=== PATIENT | male | born 1945 | race Caucasian/White ===

== ENCOUNTER 2017-05-25 15:31 | Emergency (ER) | payer OTHER ==
[2017-05-25 15:42] VITALS: BP 188/91; PULSE 84; TEMP 97.6; BMI 28.1
[2017-05-25] MEDS ORDERED: KETOROLAC TROMETHAMINE 60 MG/2 ML VIAL IM ONE (17:38)
[2017-05-25] MEDS ORDERED: KETOROLAC TROMETHAMINE 60 MG/2 ML VIAL ONE (17:40)
--- NOTE | 2017-05-25 17:55 | PDOC ---
History of Present Illness - General Chief Complaint: Back Pain Stated Complaint: BACK PAIN Time Seen by Provider: 05/25/17 17:21 - History of Present Illness Initial Comments: 05/25/17 17:55 CHIEF COMPLAINT: HISTORY OF PRESENT ILLNESS: 72 yo M with hx of hypertension presents to ED with back pain s/p playing tennis yesterday. Patient states he was seen by his PMD for chronic back pain last week and was offered muscle relaxants "but I told him I thought I could do without them." Patient now states he feels like muscle relaxants would help him as he believes his back was aggravated by playing tennis yesterday. He reports the pain is worse with movement and that "I feel like I pulled something in my upper back." No recent travel or sick contacts. PAST MEDICAL HISTORY: Denies past medical history FAMILY HISTORY: Denies SOCIAL HISTORY: Lives at home with ____. Occupation: . Denies tobacco, alcohol, illicit drug use. SURGICAL HISTORY: Denies ALLERGIES: No known drug allergies REVIEW OF SYSTEMS General/Constitutional: Denies fever or chills. Denies weakness, weight change. HEENT: Denies change in vision. Denies ear pain or discharge. Denies sore throat. Cardiovascular: Denies chest pain or shortness of breath. Respiratory: Denies cough, wheezing, or hemoptysis. Gastrointestinal: Denies nausea, vomiting, diarrhea or constipation. Denies rectal bleeding. Genitourinary: Denies dysuria, frequency, or change in urination. Musculoskeletal: Denies joint or muscle swelling or pain. Denies neck or back pain. Skin and breasts: Denies rash or easy bruising. Neurologic: Denies headache, vertigo, loss of consciousness, or loss of sensation. Psychiatric: Denies depression or anxiety. Endocrine: Denies increased thirst. Denies abnormal weight change. Hematologic/Lymphatic: Denies anemia, easy bleeding, or history of blood clots. Allergic/Immunologic: Denies hives or skin allergy. Denies latex allergy. PHYSICAL EXAM General Appearance: Well-appearing, appropriately dressed. No apparent distress , no intoxication. HEENT: EOMI, PERRLA, normal ENT inspection, normal voice, TMs normal, pharynx normal. No conjunctival pallor. No photophobia, scleral icterus. Neck: Supple. Trachea midline. No tenderness, rigidity, carotid bruit, stridor , lymphadenopathy, or thyromegaly. Respiratory/Chest: Lungs CTAB. No shortness of breath, chest tenderness, respiratory distress, accessory muscle use. No crackles, rales, rhonchi, stridor , wheezing, dullness Cardiovascular: RRR. S1, S2. No JVD, murmur, bradycardia, tachycardia. Vascular Pulses: Dorsalis-Pedis (R): 2+, Dorsalis-Pedis (L): 2+ Gastrointestinal/Abdominal: Normal bowel sounds. Abdomen soft, non-distended. No tenderness or rebound tenderness. No organomegaly, pulsatile mass, guarding , hernia, hepatomegaly, splenomegaly. Lymphatic: No adenopathy, tenderness. Musculoskeletal/Extremities: Normal inspection. FROM of all extremities, normal capillary refill. Pelvis Stable. No CVA tenderness. No tenderness to extremities, pedal edema, swelling, erythema or deformity. Integumentary: Appropriate color, dry, warm. No cyanosis, erythema, jaundice or rash Neurologic: workday consultant II-XII intact. Fully oriented, alert. Appropriate mood/affect. Motor strength 5/5. No appreciable EOM palsy, facial droop or sensory deficit. 05/25/17 18:11 05/25/17 18:12 Past History - Past Medical History Allergies/Adverse Reactions: Allergies Allergy/AdvReac Type Severity Reaction Status Date / Time Penicillins Allergy Intermediate Rash Verified 05/25/17 15:37 Home Medications: Ambulatory Orders Aspirin 81 mg PO DAILY 12/08/12 Glucosamine Sulfate Dipot Chlr [Glucosamine] 1,000 mg PO DAILY 12/08/12 Losartan Potassium 50 mg PO HS 12/08/12 Multivitamin [Multivitamins] 1 each PO DAILY 12/08/12 Ranitidine [Zantac -] 150 mg PO BID 12/08/12 Tamsulosin HCl 0.4 mg PO HS 12/08/12 Cyclobenzaprine HCl 7.5 mg PO HS PRN #7 tablet 05/25/17 Famotidine [Pepcid] 20 mg PO BID #14 tablet 05/25/17 Naproxen 375 mg PO BID #14 tablet 05/25/17 Anemia: No Asthma: No Cancer: No Cardiac Disorders: No CVA: No COPD: No CHF: No Dementia: No Diabetes: No GI Disorders: Yes (GERD) Disorders: Yes (BPH) HTN: Yes Hypercholesterolemia: Yes Liver Disease: No Seizures: No Thyroid Disease: No - Surgical History Abdominal Surgery: Yes Appendectomy: Yes ("RUPTURED") Cardiac Surgery: No Cholecystectomy: Yes Lung Surgery: No Neurologic Surgery: No Orthopedic Surgery: Yes (KNEE ARTHROSCOPY, LEFT) - Suicide/Smoking/Psychosocial Hx Smoking Status: Yes Smoking History: Never smoked Have you smoked in the past 12 months: No Number of Cigarettes Smoked Daily: 0 If you are a former smoker, when did you quit?: 1971 Information on smoking cessation initiated: No Hx Alcohol Use: No Drug/Substance Use Hx: No Substance Use Type: None Hx Substance Use Treatment: No *Physical Exam - Vital Signs Last Vital Signs Temp Pulse Resp BP Pulse Ox 97.6 F 84 18 188/91 96 05/25/17 15:39 05/25/17 15:39 05/25/17 15:39 05/25/17 15:39 05/25/17 15:39 ED Treatment Course - Medications Given in the ED: ED Medications Discontinued Medications Generic Name Dose Route Start Last Admin Trade Name Ashkan PRN Reason Stop Dose Admin Ketorolac Tromethamine 60 mg 05/25/17 17:38 05/25/17 17:45 Toradol Injection - IM 05/25/17 17:39 60 mg ONCE ONE Administration *DC/Admit/Observation/Transfer Diagnosis at time of Disposition: Muscle spasm - Discharge Dispostion Disposition: HOME Condition at time of disposition: Stable Admit: No - Prescriptions Prescriptions: Cyclobenzaprine HCl 7.5 mg PO HS PRN #7 tablet PRN Reason: Muscle Spasms Famotidine [Pepcid] 20 mg PO BID #14 tablet Naproxen 375 mg PO BID #14 tablet - Referrals Referrals: Stewart Tong MD [Primary Care Provider] - - Patient Instructions Printed Discharge Instructions: DI for Muscle Strain Additional Instructions: Please take medications as prescribed. Follow up with orthopedics if symptoms persist past 7 days. If you develop ANY loss of bowel or bladder function, loss of sensation to your extremities, or any new or worsening symptoms, please return to the ER immediately. - Post Discharge Activity
== END 2017-05-25 18:10 | disposition home or self-care (01) ==
LOC: JERFT 15:31
PROC: 3E0233Z Introduction of Anti-inflammatory into Muscle, Percutaneous Approach (ICD-10-PCS; principal; 2017-05-25)
DX: M62.830 Muscle spasm of back (principal); K21.9 Gastro-esophageal reflux disease without esophagitis; N40.0 Benign prostatic hyperplasia without lower urinary tract symptoms; E78.00 Pure hypercholesterolemia, unspecified; I10 Essential (primary) hypertension; Z87.891 Personal history of nicotine dependence
CPT/HCPCS: 99281-25

== ENCOUNTER 2018-01-22 06:15 | Day surgery (SDC) | payer OTHER ==
[2018-01-21 10:55] VITALS: BMI 28.8
[~2018-01-22 06:15] MED LIST: BUPIVACAINE HCL/PF 0.25% (2.5MG/ML) 10 ML VIAL IJ ONE
[2018-01-22] MEDS ORDERED: MIDAZOLAM HCL 2 MG/2 ML SINGLE DOSE VIAL ONE (07:31)
[2018-01-22] MEDS ORDERED: SUCCINYLCHOLINE CHLORIDE 200 MG/10 ML VIAL ONE (07:31)
[2018-01-22] MEDS ORDERED: PROPOFOL 20 ML ONE (07:31)
[2018-01-22] MEDS ORDERED: BUPIVACAINE HCL/PF 0.25% (2.5MG/ML) 10 ML VIAL ONE ×2 (07:35→08:25)
[2018-01-22] MEDS ORDERED: CLINDAMYCIN 600 MG PREMIX BAG IVPB ONE (08:07)
[2018-01-22] MEDS ORDERED: GLYCOPYRROLATE 0.2 MG/1 ML VIAL ONE (08:19)
[2018-01-22] MEDS ORDERED: BUPIVACAINE HCL/PF 0.25% (2.5MG/ML) 10 ML VIAL IJ ONE (08:27)
[2018-01-22] MEDS ORDERED: BACITRACIN 15 GM TUBE TOPICAL OINTMENT ONE (08:32)
[2018-01-22] MEDS ORDERED: oxyCODONE HCL 5 MG TABLET PO PRN (08:41)
--- NOTE | 2018-01-22 08:41 | OP ---
Operative Note - Note: Operative Date: 01/22/18 Pre-Operative Diagnosis: right hydrocele Operation: rt hydrocelectomy Post-Operative Diagnosis: Same as Pre-op Surgeon: Lennox Vazquez Anesthesia: General Estimated Blood Loss (mls): 1 Drains & Tubes with Location: [facility] Operative Report Dictated: Yes
[2018-01-22] MEDS ORDERED: DEXTROSE 5%-0.45% SALINE 1,000 ML IV SCH (08:45)
[2018-01-22] MEDS ORDERED: ONDANSETRON 4 MG/2 ML VIAL IVPUSH PRN (08:46)
[2018-01-22] MEDS ORDERED: LACTATED RINGERS SOLUTION 1,000 ML IV SCH (09:00)
--- NOTE | 2018-01-22 10:07 | OP ---
DATE OF OPERATION: 01/22/2018 PREOPERATIVE DIAGNOSIS: Right hydrocele. POSTOPERATIVE DIAGNOSIS: Right hydrocele. PROCEDURE: Right hydrocelectomy. SURGEON: Lennox Fagan MD INDICATIONS: Patient is a 72-year-old male with symptomatic right hydrocele who has had multiple drainage procedures in the past, now elected to undergo definitive hydrocelectomy. He understood the risks of bleeding, infection, recurrence of hydrocele, and potential need for additional procedures. DESCRIPTION OF PROCEDURE: After informed consent was obtained, the patient was taken to the OR, placed supine on the operating table. After cardiac monitoring administered and general anesthesia established, the scrotum was prepped and draped in standard surgical fashion. An approximately 3-cm right heather-scrotal incision was created through the skin and the dartos muscle. All bleeding sites were cauterized until the tunica vaginalis was identified. Then, the testicle with hydrocele was delivered out of the sac. Tunica vaginalis was excised, and the hydrocele fluid drained. It was cloudy and whitish. It was sent for culture and cytology. The hydrocele sac was then excised with cautery and sent to Pathology for analysis. The sac was then everted, and the testicle was placed back in its normal anatomic position. Attention was turned to wound closure. A Henning was placed in the corner of the wound, and the dartos layer was closed with interrupted 3-0 chromic suture leaving a small space for the Henning, and then, the skin was closed with interrupted mattress 3-0 chromic sutures again leaving the space for the Joe. Fluffs in the scrotal dressing with scrotal support were then placed. Patient was awoken from anesthesia and transferred to the recovery room in stable condition. There were no complications. Estimated blood loss was minimal. LENNOX FAGAN M.D. [id number]
[2018-01-22 16:05] VITALS: BP 134/78; PULSE 60; TEMP 98.2
--- NOTE | 2018-01-25 18:50 | PATH ---
Surgical Pathology Report Patient Name: ED EDMONDSON [facility]. Rec. #: [id number] /Age/Gender: 1945 (Age: 72) / M Account: [id number] Location: [facility] Taken: 01/22/2018 Received: 01/22/2018 Reported: 01/25/2018 Physicians: Lennox Vazquez M.D. Specimen(s) Received HYDROCELE SAC RIGHT Clinical History Right hydrocele Final Diagnosis HYDROCELE SAC, RIGHT, EXCISION: CONSISTENT WITH HYDROCELE. Electronically Signed Paula Fonseca M.D. Addendum Reported: 01/26/2018 Addendum Diagnosis In light of additional separate cytology fluid specimen showing numerous spermatozoa in the contents (see cytology report [id number]). This may represent a spermatocele. This case was discussed with Dr. Vazquez on 01/26/18. Paula Fonseca M.D. Gross Description Received in formalin labeled "hydrocele sac right," is a 2.8 x 2.2 x 0.3 cm aggregate of two pink-collins portions of fibromembranous tissue, consistent with a hydrocele. Parts Remover sections are submitted in one cassette. /01/22/2018 saudi01/22/2018
--- NOTE | 2018-01-26 10:39 | PATH ---
Cytology Non-Gynecological Report Patient Name: ED EDMONDSON [facility]. Rec. #: [id number] /Age/Gender: 1945 (Age: 72) / M Account: [id number] Location: [facility] Taken: 01/22/2018 Received: 01/22/2018 Reported: 01/26/2018 Physicians: Lennox Vazquez M.D. Specimen(s) Received RIGHT HYDROCELE FLUID Clinical History Right hydrocele Final Diagnosis RIGHT HYDROCELE FLUID: SATISFACTORY FOR EVALUATION. NEGATVIE FOR MALIGNANCY. NUMEROUS OF SPERMATOZOA AND SOME HISTIOCYTES PRESENT. THIS MAY REPRESENT CONTENTS OF A SPERMATOCELE. CLINICAL CORRELATION IS RECOMMENDED. ALSO SEE CONCURRENT PATHOLOGY REPORT [id number]. This case was discussed with Dr. Vazquez on 01/26/18. Electronically Signed Paula Fonseca M.D. Gross Description Approximately 40cc of whitish fluid received fresh. Two cytofunnels and one cellblock prepared.
== END 2018-01-22 13:00 | disposition home or self-care (01) ==
LOC: JASU-SURG 06:15
PROVIDERS: ATTEND Urology
PROC: 0VB60ZZ Excision of Right Tunica Vaginalis, Open Approach (ICD-10-PCS; principal; 2018-01-22 07:30)
DX: N43.2 Other hydrocele (principal)
CPT/HCPCS: 87070; 87075; 87205; 88108; 88304-TC; 94760

== ENCOUNTER 2018-02-22 08:18 | Emergency (ER) | payer OTHER ==
[2018-02-22 08:31] VITALS: BMI 28.8
--- NOTE | 2018-02-22 09:16 | PDOC ---
History of Present Illness - General Chief Complaint: Pain Stated Complaint: ABD PAIN Time Seen by Provider: 02/22/18 09:02 History Source: Patient Exam Limitations: No Limitations - History of Present Illness Travel History: No Initial Comments: 02/22/18 09:16 73y M hx of htn, gerd, bph presents with complaint of abdominal pain. Pt states he woke up this morning and has been having intermittent sharp pain in the lower abdomen. Notes the pain is worse this morning and now is just a mild discomfort. Pt endorses having a BM this morning that seemed to improve his pain. He denies any fever/chills, n/v, dysuria, hematuria, cp, sob, diaphoresis , diarrhea, bpr, melena, frequency, back pain.The pain is non radiating. Pt had a hydrocoele surgery 1 month ago, has max heeling well, denies any discomfort in his testicle, and notes no pain in his testicle Surgical hx: hydroceole surgery [address] pandey, hx of appendectomy /cholecystectomy in past PMD: Stewart magallanes Past History - Past Medical History Allergies/Adverse Reactions: Allergies Allergy/AdvReac Type Severity Reaction Status Date / Time Penicillins Allergy Intermediate Rash Verified 02/22/18 08:26 Home Medications: Ambulatory Orders Aspirin 81 mg PO DAILY 12/08/12 Glucosamine Sulfate Dipot Chlr [Glucosamine] 1,000 mg PO DAILY 12/08/12 Multivitamin [Multivitamins] 1 each PO DAILY 12/08/12 Ranitidine [Zantac -] 150 mg PO BID 12/08/12 Tamsulosin HCl 0.4 mg PO HS 12/08/12 Atorvastatin Ca [Lipitor] 10 mg PO HS 01/21/18 Cholecalciferol (Vitamin D3) [Vitamin D3] 1,000 unit PO DAILY 01/21/18 Cyanocobalamin [Vitamin B12 -] 1,000 mcg PO DAILY 01/21/18 Docusate Sodium [Colace] 100 mg PO HS 01/21/18 Levothyroxine [Synthroid -] 125 mcg PO DAILY 01/21/18 Losartan/Hydrochlorothiazide [Losartan-Hctz 50-12.5 mg Tab] 1 each PO HS [place]-3 Fatty Acids/Fish Oil [Fish Oil 1,000 mg Capsule] 1 each PO DAILY levoFLOXacin [Levaquin -] 500 mg PO DAILY #14 tablet 02/22/18 metroNIDAZOLE [Flagyl -] 500 mg PO DAILY #7 tablet 02/22/18 Anemia: No Asthma: No Cancer: No Cardiac Disorders: No CVA: No COPD: No CHF: No Dementia: No Diabetes: No GI Disorders: Yes (GERD) Disorders: Yes (BPH) HTN: Yes Hypercholesterolemia: Yes Liver Disease: No Seizures: No Thyroid Disease: No - Surgical History Abdominal Surgery: Yes Appendectomy: Yes ("RUPTURED") Cardiac Surgery: No Cholecystectomy: Yes Lung Surgery: No Neurologic Surgery: No Orthopedic Surgery: Yes (KNEE ARTHROSCOPY, LEFT) - Immunization History Immunization Up to Date: Yes - Suicide/Smoking/Psychosocial Hx Smoking Status: Yes Smoking History: Never smoked Have you smoked in the past 12 months: No Number of Cigarettes Smoked Daily: 0 If you are a former smoker, when did you quit?: 1972 Information on smoking cessation initiated: No Hx Alcohol Use: No Drug/Substance Use Hx: No Substance Use Type: None Hx Substance Use Treatment: No Review of Systems - Review of Systems Able to Perform ROS?: Yes Comments:: 02/22/18 09:20 Constitutional - no reported Fever, Chills, HEENT: no reported vision changes, sore throat Respiratory: no reported cough, sob, hemoptysis Cardiac: no reported chest pain, palpitations, light headedness, leg swelling Abd/GI: + abd pain, no reported nausea, vomiting, blood per rectum, melena, diarrhea : no reported dysuria, frequency, discharge Musculskelatal - no reported back pain, joint swelling skin - no reported bruising, erythema, rash neurological: no reported headache, numbness, focal weakness, tingling, ataxia, hematologic: no reported easy bruising, easy bleeding *Physical Exam - Vital Signs Last Vital Signs Temp Pulse Resp BP Pulse Ox 98.1 F 70 16 132/84 97 02/22/18 08:27 02/22/18 08:27 02/22/18 08:27 02/22/18 08:27 02/22/18 08:27 - Physical Exam Comments: 02/22/18 09:21 GENERAL: The patient is awake, alert, and fully oriented, Nontoxic - in no acute distress. HEAD: Normocephalic, atraumatic. EYES: extraocular movements intact, sclera anicteric, conjunctiva clear. ENT: Normal voice, Moist mucous membranes. NECK: Normal range of motion, supple LUNGS: Breath sounds equal, clear to auscultation bilaterally. No wheezes, no rhonchi, no rales. HEART: Regular rate and rhythm, normal S1 and S2 without murmur, rub or gallop. ABDOMEN: Soft, mild lower abdominal tenderness, hypoactive bowel sounds No guarding, no rebound. : R testicle slightly swollen, nontender, R testicle, incision c/d/i EXTREMITIES: Normal range of motion, no edema. No clubbing or cyanosis. No cords, erythema, or tenderness. NEUROLOGICAL: No facial assymetry, Normal speech, PSYCH: Normal mood, normal affect. SKIN: Warm, Dry, normal turgor, Heart Score/ECG Review - ECG Impressions Comment:: 02/22/18 09:45 Twelve-lead EKG was performed and reviewed by me. There is normal sinus rhythm with a normal rate. Rate of 66 The axis is normal. First degree AV block There is normal R wave progression ED Treatment Course - LABORATORY CBC & Chemistry Diagram: 02/22/18 10:00 02/22/18 10:00 Medical Decision Making - Medical Decision Making 02/22/18 09:23 73-year-old gentleman history of hypertension, hydrocephalus or approximately 1 month ago presenting with intermittent lower abdominal pain. On exam the patient is well-appearing, in no distress she does have hypoactive bowel sounds , minimal lower abdominal tenderness, mild right testicular swelling without any focal tenderness. Differential for the patient's symptoms includes possible obstruction, pancreatitis, UTI, complication from his hydrocele surgery (although there is no focal tenderness, and he notes the swelling has been since the surgery and has been improving gradually since the surgery) Will obtain basic blood work, UA, 02/22/18 12:28 labs reviewed no leukocytosis noted ua unremarkble pt still feeling mild pain with lower abd tenderness will obtain CT abd to r/o pathology 02/22/18 17:[address] noted for colitis abd soft nontender will give levauin/flagyl will dc with pmd fu return precautions were discussed I discussed the physical exam findings, ancillary test results and final diagnoses with the patient. I answered all of the patient's questions. The patient was satisfied with the care received and felt comfortable with the discharge plan and treatment plan. The patient will call their primary care physician within 24 hours to arrange follow-up and will return to the Emergency Department with any new, persistent or worsening symptoms. *DC/Admit/Observation/Transfer Diagnosis at time of Disposition: Colitis - Discharge Dispostion Disposition: HOME Condition at time of disposition: Improved Decision to Admit order: No - Prescriptions Prescriptions: levoFLOXacin [Levaquin -] 500 mg PO DAILY #14 tablet metroNIDAZOLE [Flagyl -] 500 mg PO DAILY #7 tablet - Referrals Referrals: Stewart Tong MD [Primary Care Provider] - - Patient Instructions Printed Discharge Instructions: DI for Colitis Additional Instructions: Return to the emergency department immediately with ANY new, persistent or worsening symptoms including worsening abdominal pain, inability to tolerate oral intake, fevers or any other concerns Thake the antibiotics as prescribed. You MUST call and follow up with your doctor in 2-3 days for further evaluation of your symptoms. Results were discussed with you. Please make sure your doctor reviews the results of your emergency evaluation. Print Language: FAROESE - Post Discharge Activity
[2018-02-22] MEDS ORDERED: morphine CARPU-JECT 2 MG/1 ML DISP.SYRIN IVPUSH ONE (09:18)
[2018-02-22] MEDS ORDERED: SODIUM CHLORIDE 500 ML IV STA (09:47)
[2018-02-22] MEDS ORDERED: MORPHINE SULFATE 2 MG/ML VIAL ONE (09:59)
[2018-02-22 10:15] LABS: BASO % 0.3 % (0-2.0); EOS % 0.1 % (0-4.5); HEMATOCRIT 41.4 % (35.4-49); HEMOGLOBIN 14.1 GM/dL (11.7-16.9); LYMPH % 6.3 % (8-40); MCH 28.6 pg (25.7-33.7); MCHC 34.1 g/dl (32.0-35.9); MEAN CELL VOLUME 83.8 fl (80-96); MEAN PLT VOLUME 8.5 fl (7.5-11.1); MONO % 4.4 % (3.8-10.2); NEUT % 88.9 % (42.8-82.8); PLATELET COUNT 186 K/MM3 (134-434); RBC 4.95 M/mm3 (4.00-5.60); RDW 13.2 % (11.9-15.9); WHITE BLOOD COUNT 9.3 K/mm3 (4.0-10.0)
[2018-02-22 10:18] LABS: URINE APPEARANCE CLEAR; URINE BILIRUBIN NEGATIVE (<2.0 mg/dL); URINE COLOR YELLOW; URINE GLUCOSE (UA) NEGATIVE (NEGATIVE); URINE KETONE NEGATIVE (NEGATIVE); URINE LEUK ESTERASE NEGATIVE (NEGATIVE); URINE NITRITE NEGATIVE (NEGATIVE); URINE PROTEIN NEGATIVE (NEGATIVE); URINE UROBILINOGEN NEGATIVE mg/dL (0.2-1.0)
[2018-02-22 10:39] LABS: ALBUMIN 3.8 g/dl (3.4-5.0); ALK PHOS 64 U/L (45-117); ANION GAP 8 MMOL/L (8-16); BLOOD UREA NITROGEN 20 mg/dL (7-18); CHLORIDE 105 mmol/L (98-107); CO2 25 mmol/L (21-32); GLUCOSE,RANDOM 131 mg/dL (74-106); LIPASE 101 U/L (73-393); POTASSIUM 3.7 mmol/L (3.5-5.1); SGOT/AST 30 U/L (15-37); SGPT/ALT 42 U/L (13-61); SODIUM 137 mmol/L (136-145); TOT PROT 7.2 g/dl (6.4-8.2)
[2018-02-22 17:48] VITALS: BP 144/74; PULSE 78; TEMP 98
--- NOTE | 2018-02-22 18:08 | EKG ---
Test Reason : Blood Pressure : / mmHG Vent. Rate : 066 BPM Atrial Rate : 066 BPM P-R Int : 212 ms QRS Dur : 090 ms QT Int : 404 ms P-R-T Axes : -08 026 -02 degrees QTc Int : 423 ms SINUS RHYTHM WITH 1ST DEGREE A-V BLOCK OTHERWISE NORMAL ECG WHEN COMPARED WITH ECG OF 19-NOV-2012 09:09, NO SIGNIFICANT CHANGE WAS FOUND Confirmed by AMBERLY PACE MD ([id number]) on 02/22/2018 6:08:18 PM Referred By: Confirmed By:AMBERLY PACE MD
== END 2018-02-22 17:48 | disposition home or self-care (01) ==
LOC: JER 08:18
PROC: 3E0337Z Introduction of Electrolytic and Water Balance Substance into Peripheral Vein, Percutaneous Approach (ICD-10-PCS; principal; 2018-02-22)
PROC: 3E03329 Introduction of Other Anti-infective into Peripheral Vein, Percutaneous Approach (ICD-10-PCS; 2018-02-22)
PROC: 3E033NZ Introduction of Analgesics, Hypnotics, Sedatives into Peripheral Vein, Percutaneous Approach (ICD-10-PCS; 2018-02-22)
PROC: 3E03329 Introduction of Other Anti-infective into Peripheral Vein, Percutaneous Approach (ICD-10-PCS; 2018-02-22)
DX: K52.9 Noninfective gastroenteritis and colitis, unspecified (principal); I10 Essential (primary) hypertension; K21.9 Gastro-esophageal reflux disease without esophagitis; E78.00 Pure hypercholesterolemia, unspecified; N40.0 Benign prostatic hyperplasia without lower urinary tract symptoms; Z98.890 Other specified postprocedural states; Z88.0 Allergy status to penicillin
CPT/HCPCS: 36415; 74177-TC; 80053; 81003; 83605; 83690; 85025; 93005; 93010; 99284-25

== ENCOUNTER 2018-05-14 11:21 | Emergency (ER) | payer OTHER ==
[2018-05-14 12:09] VITALS: TEMP 98.3; BMI 28.8
[2018-05-14] MEDS ORDERED: KETOROLAC TROMETHAMINE 30 MG/1 ML VIAL IVPUSH ONE (13:13)
[2018-05-14] MEDS ORDERED: SODIUM CHLORIDE 1,000 ML IV STA ×2 (13:13→17:26)
[2018-05-14] MEDS ORDERED: KETOROLAC TROMETHAMINE 30 MG/1 ML VIAL ONE ×2 (13:33→17:58)
[2018-05-14 13:55] LABS: BASO % 0.9 % (0-2.0); EOS % 0.6 % (0-4.5); HEMATOCRIT 38.8 % (35.4-49); HEMOGLOBIN 13.7 GM/dL (11.7-16.9); LYMPH % 15.3 % (8-40); MCH 29.7 pg (25.7-33.7); MCHC 35.2 g/dl (32.0-35.9); MEAN CELL VOLUME 84.4 fl (80-96); MEAN PLT VOLUME 8.3 fl (7.5-11.1); MONO % 12.8 % (3.8-10.2); NEUT % 70.4 % (42.8-82.8); PLATELET COUNT 215 K/MM3 (134-434); RDW 13.2 % (11.9-15.9); WHITE BLOOD COUNT 5.7 K/mm3 (4.0-10.0)
--- NOTE | 2018-05-14 13:58 | PDOC ---
History of Present Illness - General Chief Complaint: Diarrhea Stated Complaint: Diarrhea Time Seen by Provider: 05/14/18 12:13 History Source: Patient Exam Limitations: No Limitations - History of Present Illness Travel History: No Initial Comments: 05/14/18 14:42 73-year-old male with history of colitis and recent diagnosis of UTI presents he will continue a lower abdominal cramping frequent sensation to over his bowels and intermittent incontinence of urine. Patient denies fever but states had chills since Thursday and denies nausea, vomiting, hematuria or back pain. Patient does state decreased appetite and fluid intake secondary to fear of moving his bowels following by mouth intake as in earlier this week. Patient was seen by his PCP 2 days prior and was placed on Levaquin for UTI. Quality: reports: moderate, cramping Abdominal Pain Onset Location: reports: LLQ, suprapubic Pain Radiation: reports: no radiation Activities at Onset: reports: none Aggravating Factors: improves with: None Alleviating Factors: improves with: None Past History - Travel Traveled outside of the country in the last 30 days: No - Past Medical History Allergies/Adverse Reactions: Allergies Allergy/AdvReac Type Severity Reaction Status Date / Time Penicillins Allergy Intermediate Rash Verified 05/14/18 12:09 Home Medications: Ambulatory Orders Aspirin 81 mg PO DAILY 12/08/12 Glucosamine Sulfate Dipot Chlr [Glucosamine] 1,000 mg PO DAILY 12/08/12 Multivitamin [Multivitamins] 1 each PO DAILY 12/08/12 Ranitidine [Zantac -] 150 mg PO BID 12/08/12 Tamsulosin HCl 0.4 mg PO HS 12/08/12 Atorvastatin Ca [Lipitor] 10 mg PO HS 01/21/18 Cholecalciferol (Vitamin D3) [Vitamin D3] 1,000 unit PO DAILY 01/21/18 Cyanocobalamin [Vitamin B12 -] 1,000 mcg PO DAILY 01/21/18 Docusate Sodium [Colace] 100 mg PO HS 01/21/18 Levothyroxine [Synthroid -] 125 mcg PO DAILY 01/21/18 Losartan/Hydrochlorothiazide [Losartan-Hctz 50-12.5 mg Tab] 1 each PO HS [place]-3 Fatty Acids/Fish Oil [Fish Oil 1,000 mg Capsule] 1 each PO DAILY levoFLOXacin [Levaquin -] 500 mg PO DAILY #14 tablet 02/22/18 metroNIDAZOLE [Flagyl -] 500 mg PO DAILY #7 tablet 02/22/18 Anemia: No Asthma: No Cancer: No Cardiac Disorders: No CVA: No COPD: No CHF: No Dementia: No Diabetes: No GI Disorders: Yes (GERD) Disorders: Yes (BPH) HTN: Yes Hypercholesterolemia: Yes Liver Disease: No Seizures: No Thyroid Disease: No - Surgical History Abdominal Surgery: Yes Appendectomy: Yes ("RUPTURED") Cardiac Surgery: No Cholecystectomy: Yes Lung Surgery: No Neurologic Surgery: No Orthopedic Surgery: Yes (KNEE ARTHROSCOPY, LEFT) - Immunization History Immunization Up to Date: Yes - Suicide/Smoking/Psychosocial Hx Smoking Status: Yes Smoking History: Never smoked Have you smoked in the past 12 months: No Number of Cigarettes Smoked Daily: 0 If you are a former smoker, when did you quit?: 1972 Hx Alcohol Use: No Drug/Substance Use Hx: No Substance Use Type: None Hx Substance Use Treatment: No Patient Lives Alone: No Lives with/in: spouse/SO Abd/GI Specific PMHX - Complaint Specific PMHX Colitis: Yes Review of Systems - Review of Systems Able to Perform ROS?: Yes Constitutional: Yes: Chills, Weakness. No: Fever HEENTM: No: Symptoms Reported Respiratory: No: Symptoms reported Cardiac (ROS): No: Symptoms Reported ABD/GI: Yes: Diarrhea, Abdominal cramping : Yes: Frequency. No: Flank Pain Integumentary: No: Symptoms Reported Neurological: Yes: Weakness *Physical Exam - Vital Signs Last Vital Signs Temp Pulse Resp BP Pulse Ox 98.3 F 69 18 133/84 95 05/14/18 12:03 05/14/18 12:03 05/14/18 12:03 05/14/18 12:03 05/14/18 12:03 - Physical Exam General Appearance: Yes: Nourished, Appropriately Dressed. No: Apparent Distress HEENT: positive: EOMI, SEBASTIAN, TMs Normal, Pharynx Normal (dry) Neck: positive: Supple Respiratory/Chest: positive: Lungs Clear, Normal Breath Sounds. negative: Respiratory Distress, Accessory Muscle Use Cardiovascular: positive: Regular Rhythm, Regular Rate. negative: Murmur Gastrointestinal/Abdominal: positive: Soft, Tenderness (left lower quadrant/ left periumbilical) Musculoskeletal: negative: CVA Tenderness Extremity: negative: Pedal Edema Integumentary: positive: Normal Color, Warm, Moist Neurologic: positive: Motor Strength 5/5 Moderate Sedation - Procedure Monitoring Vital Signs: Procedure Monitoring Vital Signs Temperature 98.3 F 05/14/18 12:03 Pulse Rate 69 05/14/18 12:03 Respiratory Rate 18 05/14/18 12:03 Blood Pressure 133/84 05/14/18 12:03 O2 Sat by Pulse Oximetry (%) 95 05/14/18 12:03 ED Treatment Course - LABORATORY CBC & Chemistry Diagram: 05/14/18 13:30 05/14/18 13:30 - RADIOLOGY Radiology Studies Ordered: Category Date Time Status ABDOMEN & PELVIS CT WITH CONTR [CT] Stat CT Scan 05/14/18 13:13 Ordered Medical Decision Making - Medical Decision Making 05/14/18 15:15 Chief complaint: Lower abdominal cramping associated diarrhea and dysuria with frequency. Patient also with chills past 4 days. Patient currently Levaquin 500 daily placed by his PMD 2 days prior secondary to positive UA findings. Exam: Left lower quadrant left periumbilical tenderness. Patient appears dry on exam. Plan: Labs, urine, IV fluids, Toradol. Called and spoke to nurse at PMDs office stating urine culture shows Escherichia coli on preliminary report 05/14/18 17:36 Laboratory Tests 05/14/18 05/14/18 13:30 13:30 Sodium 135 L Potassium 3.3 L Chloride 98 Carbon Dioxide 27 Anion Gap 9 BUN 23 H Random Glucose 134 H Lactic Acid 1.0 Calcium 9.1 Magnesium 2.3 Total Bilirubin 0.6 AST 66 H ALT 69 H Alkaline Phosphatase 76 Total Protein 6.7 Lipase 131 05/14/18 17:36 Laboratory Tests 05/14/18 05/14/18 13:30 13:30 WBC 5.7 Hgb 13.7 Hct 38.8 Plt Count 215 Neutrophils % 70.4 D Monocytes % 12.8 H D Urine Ketones Negative Ur Leukocyte Esterase 1+ H Urine WBC (Auto) 31 Urine RBC (Auto) 1 As per nurse from patient's by care physician's office she states patient had a 66 white cells with 2+ leukocytes in his urine. Patient ordered for second liter of fluid along potassium 40 mEq by mouth patient states than better after receiving IV fluids and Toradol. 05/14/18 18:29 CT of the abdomen and pelvis shows mild increase posterior bibasally interstitial changes seen when compared to an abdominal CT study of January 2018 probably on the basis of mild atelectasis and less likely representing infiltrates. In comparison to prior CT there is resolution of colonic wall thickening and the remainder of the exam appears unremarkable. Patient will be given a prescription for Imodium and told to continue the Levaquin *DC/Admit/Observation/Transfer Diagnosis at time of Disposition: UTI (urinary tract infection), Diarrhea - Discharge Dispostion Disposition: HOME Condition at time of disposition: Improved - Referrals Referrals: Sharee Tong MD [Primary Care Provider] - - Patient Instructions Printed Discharge Instructions: DI for Urinary Tract Infection (UTI) Additional Instructions: Please take Imodium for cramping and diarrhea. Please continue with the Levaquin and follow up with your doctor next week. - Post Discharge Activity
[2018-05-14 14:14] LABS: URINE APPEARANCE CLEAR; URINE BILIRUBIN NEGATIVE (<2.0 mg/dL); URINE COLOR LTYELLOW; URINE GLUCOSE (UA) NEGATIVE (NEGATIVE); URINE KETONE NEGATIVE (NEGATIVE); URINE LEUK ESTERASE 1+ (NEGATIVE); URINE NITRITE NEGATIVE (NEGATIVE); URINE PROTEIN NEGATIVE (NEGATIVE); URINE UROBILINOGEN NEGATIVE mg/dL (0.2-1.0)
[2018-05-14 14:18] LABS: EPI CELLS RARE /HPF (FEW)
[2018-05-14 14:48] LABS: ALBUMIN 3.2 g/dl (3.4-5.0); ALK PHOS 76 U/L (45-117); ANION GAP 9 MMOL/L (8-16); BILIRUBIN,TOTAL 0.6 mg/dL (0.2-1); BLOOD UREA NITROGEN 23 mg/dL (7-18); CALCIUM 9.1 mg/dL (8.5-10.1); CHLORIDE 98 mmol/L (98-107); CO2 27 mmol/L (21-32); GLUCOSE,RANDOM 134 mg/dL (74-106); LIPASE 131 U/L (73-393); MAGNESIUM 2.3 mg/dL (1.8-2.4); POTASSIUM 3.3 mmol/L (3.5-5.1); SGOT/AST 66 U/L (15-37); SGPT/ALT 69 U/L (13-61); SODIUM 135 mmol/L (136-145); TOT PROT 6.7 g/dl (6.4-8.2)
[2018-05-14] MEDS ORDERED: POTASSIUM CHLORIDE TABS 20 MEQ TABLET.ER (FP) PO ONE ×2 (17:26→17:58)
[2018-05-14 19:26] VITALS: BP 128/74; PULSE 76
== END 2018-05-14 19:30 | disposition home or self-care (01) ==
LOC: JER 11:21
PROC: 3E0333Z Introduction of Anti-inflammatory into Peripheral Vein, Percutaneous Approach (ICD-10-PCS; principal; 2018-05-14)
PROC: 3E0337Z Introduction of Electrolytic and Water Balance Substance into Peripheral Vein, Percutaneous Approach (ICD-10-PCS; 2018-05-14)
DX: N39.0 Urinary tract infection, site not specified (principal); R19.7 Diarrhea, unspecified; Z87.891 Personal history of nicotine dependence
CPT/HCPCS: 36415; 74177-TC; 80053; 81003; 81015; 83605; 83690; 83735; 85025; 87086; 99282-25; J7030

== ENCOUNTER 2018-06-17 19:57 | Emergency (ER) | payer OTHER ==
[2018-06-17 20:06] VITALS: BP 181/85; PULSE 86; TEMP 97.6; BMI 28.8
--- NOTE | 2018-06-17 20:06 | PDOC ---
Rapid Medical Evaluation Chief Complaint: Pain Time Seen by Provider: 06/17/18 20:03 Medical Evaluation: Allergies Allergy/AdvReac Type Severity Reaction Status Date / Time Penicillins Allergy Intermediate Rash Verified 05/14/18 12:09 06/17/18 20:04 I have performed a brief in-person evaluation of this patient. The patient presents with a chief complaint of: Testicular pain and hematuria x 3 hrs Pertinent physical exam findings: No acute distress I have ordered the following: UA/culture, u/s scrotum The patient will proceed to the ED for further evaluation. Discharge Disposition - Diagnosis Testicular pain, left - Referrals - Patient Instructions - Post Discharge Activity
--- NOTE | 2018-06-17 20:29 | PDOC ---
History of Present Illness <Lula Cline - Last Filed: 06/18/18 00:15> - History of Present Illness Initial Comments: 06/17/18 20:25 73 yo M with h/o HTN, hypothyoridism, colitis, recurrent UTI who p/w hematuria, and left sided testicle pain. Patient reports acute onset of hematuria, dysuria , and dull, achy, now slightly improved, left sided testicular pain beginning at approximately 4:00 PM this evening at rest while, sitting at computer. Denies h/o similar presentation. No identifiable triggers or alleviators. Denies testicle trauma, flank pain. Patient denies MAURICIO, palpitations, leg pain/swelling, vision change, N/V, F,C, CP , SOB, urinary complaints, abdominal pain, diarrhea, constipation, BPR, lightheadedness, weakness, sensory changes. PMHx: as noted above. Denies h/o kidney stones ROS: as noted SHx: Distant tobacco use. Denies IVDA. Currently not sexually active. Allergies: NKDA <Tank Grant - Last Filed: 06/18/18 00:23> - General Chief Complaint: Pain Stated Complaint: TESTICLE PAIN/HEMATURIA Time Seen by Provider: 06/17/18 20:03 Past History <Lula Cline - Last Filed: 06/18/18 00:15> - Past Medical History Anemia: No Asthma: No Cancer: No Cardiac Disorders: No CVA: No COPD: No CHF: No Dementia: No Diabetes: No GI Disorders: Yes (GERD) Disorders: Yes (BPH) HTN: Yes Hypercholesterolemia: Yes Liver Disease: No Seizures: No Thyroid Disease: No - Surgical History Abdominal Surgery: Yes Appendectomy: Yes ("RUPTURED") Cardiac Surgery: No Cholecystectomy: Yes Lung Surgery: No Neurologic Surgery: No Orthopedic Surgery: Yes (KNEE ARTHROSCOPY, LEFT) - Immunization History Immunization Up to Date: Yes - Suicide/Smoking/Psychosocial Hx Smoking Status: Yes Smoking History: Former smoker Have you smoked in the past 12 months: No Number of Cigarettes Smoked Daily: 0 If you are a former smoker, when did you quit?: 1972 Information on smoking cessation initiated: No Hx Alcohol Use: No Drug/Substance Use Hx: No Substance Use Type: None Hx Substance Use Treatment: No <Tank Grant - Last Filed: 06/18/18 00:23> - Past Medical History Allergies/Adverse Reactions: Allergies Allergy/AdvReac Type Severity Reaction Status Date / Time Penicillins Allergy Intermediate Rash Verified 06/17/18 20:06 Home Medications: Ambulatory Orders Aspirin 81 mg PO DAILY 12/08/12 Glucosamine Sulfate Dipot Chlr [Glucosamine] 1,000 mg PO DAILY 12/08/12 Multivitamin [Multivitamins] 1 each PO DAILY 12/08/12 Ranitidine [Zantac -] 150 mg PO BID 12/08/12 Tamsulosin HCl 0.4 mg PO HS 12/08/12 Atorvastatin Ca [Lipitor] 10 mg PO HS 01/21/18 Cholecalciferol (Vitamin D3) [Vitamin D3] 1,000 unit PO DAILY 01/21/18 Cyanocobalamin [Vitamin B12 -] 1,000 mcg PO DAILY 01/21/18 Docusate Sodium [Colace] 100 mg PO HS 01/21/18 Levothyroxine [Synthroid -] 125 mcg PO DAILY 01/21/18 Losartan/Hydrochlorothiazide [Losartan-Hctz 50-12.5 mg Tab] 1 each PO HS [place]-3 Fatty Acids/Fish Oil [Fish Oil 1,000 mg Capsule] 1 each PO DAILY levoFLOXacin [Levaquin -] 500 mg PO DAILY #14 tablet 02/22/18 metroNIDAZOLE [Flagyl -] 500 mg PO DAILY #7 tablet 02/22/18 Loperamide HCl [Imodium -] 2 mg PO DAILY #7 capsule 05/14/18 levoFLOXacin [Levaquin -] 750 mg PO DAILY #9 tablet MDD 1 / tab 06/18/18 Review of Systems - Review of Systems Comments:: 06/17/18 20:28 GENERAL/CONSTITUTIONAL: No fever or chills. No weakness. HEAD, EYES, EARS, NOSE AND THROAT: No change in vision. No ear pain or discharge. No sore throat. CARDIOVASCULAR: No chest pain or shortness of breath RESPIRATORY: No cough, wheezing, or hemoptysis. GASTROINTESTINAL: No nausea, vomiting, diarrhea or constipation. GENITOURINARY: + hematuria, testicular pain. No dysuria, frequency, or change in urination. MUSCULOSKELETAL: No joint or muscle swelling or pain. No neck or back pain. SKIN: No rash NEUROLOGIC: No headache, vertigo, loss of consciousness, or change in strength/ sensation. ENDOCRINE: No increased thirst. No abnormal weight change HEMATOLOGIC/LYMPHATIC: No anemia, easy bleeding, or history of blood clots. ALLERGIC/IMMUNOLOGIC: No hives or skin allergy. <Tank Grant - Last Filed: 06/18/18 00:23> *Physical Exam - Vital Signs Last Vital Signs Temp Pulse Resp BP Pulse Ox 97.6 F 86 17 181/85 H 94 L 06/17/18 20:03 06/17/18 20:03 06/17/18 20:03 06/17/18 20:03 06/17/18 20:03 <Lula Cline - Last Filed: 06/18/18 00:15> - Vital Signs Last Vital Signs Temp Pulse Resp BP Pulse Ox 97.6 F 86 17 181/85 H 94 L 06/17/18 20:03 06/17/18 20:03 06/17/18 20:03 06/17/18 20:03 06/17/18 20:03 - Physical Exam Comments: 06/17/18 20:28 GENERAL: Awake, alert, and fully oriented, in no acute distress HEAD: No signs of trauma, normocephalic, atraumatic EYES: PERRLA, EOMI, sclera anicteric, conjunctiva clear ENT: Hearing grossly normal, nares patent, oropharynx clear without exudates. Moist mucosa NECK: Normal ROM, supple, no lymphadenopathy, JVD, or masses LUNGS: No distress, speaks full sentences, clear to auscultation bilaterally HEART: Regular rate and rhythm, normal S1 and S2, no murmurs, rubs or gallops, peripheral pulses normal and equal bilaterally. ABDOMEN: Soft, nontender, normoactive bowel sounds. No guarding, no rebound. No masses GENITOURINARY: Neg scrotal erythema, swelling, fluctuance, ttp, skin change. Neg penile lesions or discharge. Pereineum intact. Neg inguninal lymphadneopathy , bulging. EXTREMITIES : Normal inspection, Normal range of motion, no edema. No clubbing or cyanosis. SKIN: Warm, Dry, normal turgor, no rashes or lesions noted <Tank Grant - Last Filed: 06/18/18 00:23> Moderate Sedation - Procedure Monitoring Vital Signs: Procedure Monitoring Vital Signs Temperature 97.6 F 06/17/18 20:03 Pulse Rate 86 06/17/18 20:03 Respiratory Rate 17 06/17/18 20:03 Blood Pressure 181/85 H 06/17/18 20:03 O2 Sat by Pulse Oximetry (%) 94 L 06/17/18 20:03 <Lula Cline - Last Filed: 06/18/18 00:15> - Procedure Monitoring Vital Signs: Procedure Monitoring Vital Signs Temperature 97.6 F 06/17/18 20:03 Pulse Rate 86 06/17/18 20:03 Respiratory Rate 17 06/17/18 20:03 Blood Pressure 181/85 H 06/17/18 20:03 O2 Sat by Pulse Oximetry (%) 94 L 06/17/18 20:03 <Tank Grant - Last Filed: 06/18/18 00:23> ED Treatment Course - LABORATORY CBC & Chemistry Diagram: 06/17/18 21:00 06/17/18 21:00 - ADDITIONAL ORDERS Additional order review: Laboratory Results 06/17/18 06/17/18 21:00 20:36 Sodium 138 Potassium 4.0 Chloride 103 Carbon Dioxide 26 Anion Gap 9 BUN 21 H Creatinine 1.0 Creat Clearance w eGFR > 60 Random Glucose 121 H Calcium 9.4 Total Bilirubin 0.5 AST 24 ALT 37 Alkaline Phosphatase 78 Total Protein 7.4 Albumin 3.9 Urine Color Red Urine Appearance Cloudy Urine pH 6.0 Ur Specific [place] 1.012 Urine Protein 2+ H Urine Glucose (UA) Negative Urine Ketones Negative Urine Blood 3+ H Urine Nitrite Negative Urine Bilirubin Negative Urine Urobilinogen Negative Ur Leukocyte Esterase 3+ H D Urine WBC (Auto) 1161 Urine RBC (Auto) 3628 Urine Bacteria Rare Urine Mucus Rare 06/17/18 21:00 RBC 4.77 MCV 84.3 MCHC 34.4 RDW 12.9 MPV 8.2 Neutrophils % 81.1 Lymphocytes % 12.0 D Monocytes % 5.9 Eosinophils % 0.8 Basophils % 0.2 - Medications Given in the ED: ED Medications Discontinued Medications Generic Name Dose Route Start Last Admin Trade Name Freq PRN Reason Stop Dose Admin Acetaminophen 650 mg 06/17/18 21:23 06/17/18 21:42 Tylenol - PO 06/17/18 21:24 650 mg ONCE ONE Administration Sodium Chloride 1,000 mls @ 1,000 mls/hr 06/17/18 21:23 06/17/18 21:42 Normal Saline - IV 06/17/18 22:22 1,000 mls/hr ASDIR STA Administration Ketorolac Tromethamine 15 mg 06/17/18 22:32 06/17/18 23:24 Toradol Injection - IVPUSH 06/17/18 22:33 15 mg ONCE ONE Administration <Lula Cline - Last Filed: 06/18/18 00:15> - LABORATORY CBC & Chemistry Diagram: 06/17/18 21:00 06/17/18 21:00 - ADDITIONAL ORDERS Additional order review: 06/17/18 22:12 EXAM#: TYPE/EXAM: RESULT: [id number] US/SCROTUM AND CONTENTS US Scrotal ultrasound Clinical information: left testicular pain, evaluate for torsion The testes appear unremarkable in overall size, contour, vascularity and echogenicity. No focal testicular pathology is noted. There is no Doppler evidence of testicular torsion, sensitivity 85%. Small right-sided and very small left-sided hydroceles are seen. A 0.8 cm left epididymal head cyst is noted. The right epididymis appears unremarkable. No obvious varicocele is seen with the patient in a recumbent position. Impression: No Doppler evidence of testicular torsion. Small right-sided and very small left-sided hydroceles. 0.8 cm left epididymal head cyst. Reported By: Vince Alvarado MD [address] Technologist: Jyotsna Burgos Transcribed Date/Time: [address] Worker: Vince Alvarado Printed Date/Time: 06/18/18 00:18 EXAM#: TYPE/EXAM: RESULT: [id number] CT/SPIRAL- RENAL- STONE CT Renal stone CT without contrast Clinical information: hematuria; patient reports left flank pain Multiplanar imaging was performed. No intravenous or enteric contrast was administered. There is no hydroureteronephrosis. A 1 to 2 mm mm nonobstructing left renal calculus is seen (transaxial image 50). This punctate calculus could not be appreciated on a contrast-enhanced CT study of 05/14/2018 probably due to obscuring intravascular contrast. The kidneys, urinary bladder, adrenal glands, liver, and pancreas demonstrate no discrete noncontrast abnormality. Incidental 2.4 cm right renal lower pole cortical cyst. A stable 0.3 cm splenic cyst is visualized. There is no aortic aneurysm. No obvious lymphadenopathy is identified. No gross urinary tract mass lesion is seen on noncontrast imaging. Prostate enlargement is noted which is probably mild to moderate. A 1.3 cm left renal artery aneurysm is seen adjacent to the hilum which appears unchanged in comparison to a CT study of 02/22/2018. Small bilateral inguinal hernias are noted containing fat only. Status post cholecystectomy. As on prior studies there is minimal to mild biliary tract dilatation which may be on a postsurgical physiologic basis. No evidence of pneumoperitoneum, free intraperitoneal fluid or bowel obstruction. There is no CT evidence of appendicitis or diverticulitis. Sigmoid diverticulosis is noted. No gross noncontrast small bowel pathology is seen. Moderate left L5-S1 degenerative facet arthropathy. Mild chronic posterior bibasilar interstitial changes. Impression: No hydronephrosis is seen. A 1 to 2 mm nonobstructing left renal calculus is noted. A stable 1.3 cm left renal artery aneurysm is seen adjacent to the hilum. No gross urinary tract mass lesion is identified on noncontrast imaging. Small bilateral inguinal hernias containing fat only. Status post cholecystectomy. Stable minimal to mild biliary tract dilatation is noted which may be physiologic in nature following surgery. Clinical/laboratory correlation suggested. Sigmoid diverticulosis. Reported By: Vince Alvarado MD 06/18/18 0003 [address] Technologist: Lucho Wilson Transcribed Date/Time: 06/18/18 0003 Heat Treat Worker: Vince Alvarado <Tank Grant - Last Filed: 06/18/18 00:23> Medical Decision Making - Medical Decision Making 06/17/18 20:25 73 yo M with h/o HTN, hypothyoridism, colitis, recurrent UTI who p/w hematuria, and dull, left sided testicle pain. BP 181/85, 94 %02 RA, vitals otherwise wnl, AF, A&Ox3. Abdominal and exam unremarkable. Non toxic appearing. R/o testicular torsion. Will consider nephrolithaisas/obstructive uropathy, TELMA, AAA /Ao dissection, epidydimitis, orchitis, cystitis, pyelonephritis. Arrives from fast track. Pending labs, UA, Ucx. ED Course: 06/17/18 20:28 CBC, CMP 06/17/18 20:54 UA: 3+ Blood, 3+ LE, neg nitrite, 1161 WBC, 3628 RBC 06/17/18 22:03 WBC: 11.8 06/17/18 22:12 Scrotal U/S: Impression: No Doppler evidence of testicular torsion. Small right- sided and very small left-sided hydroceles. 0.8 cm left epididymal head cyst. 06/17/18 22:31 BUN/Cr: 21/1.[address],Toradol 06/18/18 00:20 CT SPIRAL Impression: No hydronephrosis is seen. A 1 to 2 mm nonobstructing left renal calculus is noted. A stable 1.3 cm left renal artery aneurysm is seen adjacent to the hilum. No gross urinary tract mass lesion is identified on noncontrast imaging. Small bilateral inguinal hernias containing fat only. Status post cholecystectomy. Stable minimal to mild biliary tract dilatation is noted which may be physiologic in nature following surgery. Clinical/laboratory correlation suggested. Sigmoid diverticulosis. Patient acknowledges left renal artery aneurysm and agrees to f/u with vascular and urology. Levaquin 750 mg 06/18/18 00:22 Patient stable for d/c with return precautions. <Tank Grant - Last Filed: 06/18/18 00:23> *DC/Admit/Observation/Transfer <Lula Cline - Last Filed: 06/18/18 00:15> - Discharge Dispostion Decision to Admit order: No - Attestations Physician Attestion: 06/17/18 21:25 I attest to the information provided in this note. <Tank Grant - Last Filed: 06/18/18 00:23> Diagnosis at time of Disposition: Testicular pain, left Hematuria Qualifiers: Hematuria type: gross Qualified Code(s): R31.0 - Gross hematuria - Discharge Dispostion Condition at time of disposition: Stable - Prescriptions Prescriptions: levoFLOXacin [Levaquin -] 750 mg PO DAILY #9 tablet MDD 1 06/02 tab - Referrals Referrals: Mookie Gonsales MD [Staff Physician] - Flavio Hodges MD [Non Staff, Medical] - - Patient Instructions Printed Discharge Instructions: DI for Hematuria Additional Instructions: Please return to the emergency department with any new or worsening symptoms or concerns. Please follow up with your primary care physician within 72 hours. Please follow up with vascular surgery and urology within one week. Please take Levaquin 750 mg a day for 7 days.
[2018-06-17 20:50] LABS: URINE APPEARANCE CLOUDY; URINE BILIRUBIN NEGATIVE (<2.0 mg/dL); URINE COLOR RED; URINE GLUCOSE (UA) NEGATIVE (NEGATIVE); URINE KETONE NEGATIVE (NEGATIVE); URINE LEUK ESTERASE 3+ (NEGATIVE); URINE NITRITE NEGATIVE (NEGATIVE); URINE PROTEIN 2+ (NEGATIVE); URINE UROBILINOGEN NEGATIVE mg/dL (0.2-1.0)
[2018-06-17 20:54] LABS: URINE BACTERIA RARE /hpf (NONE SEEN); URINE MUCUS RARE
[2018-06-17] MEDS ORDERED: ACETAMINOPHEN 325 MG TABLET (FP) PO ONE (21:23)
[2018-06-17] MEDS ORDERED: SODIUM CHLORIDE 1,000 ML IV STA (21:23)
[2018-06-17] MEDS ORDERED: ACETAMINOPHEN 325 MG TABLET (FP) ONE (21:49)
[2018-06-17 21:55] LABS: BASO % 0.2 % (0-2.0); EOS % 0.8 % (0-4.5); HEMATOCRIT 40.2 % (35.4-49); HEMOGLOBIN 13.8 GM/dL (11.7-16.9); MCHC 34.4 g/dl (32.0-35.9); MEAN CELL VOLUME 84.3 fl (80-96); MEAN PLT VOLUME 8.2 fl (7.5-11.1); MONO % 5.9 % (3.8-10.2); NEUT % 81.1 % (42.8-82.8); PLATELET COUNT 243 K/MM3 (134-434); RBC 4.77 M/mm3 (4.00-5.60); RDW 12.9 % (11.9-15.9); WHITE BLOOD COUNT 11.8 K/mm3 (4.0-10.0)
[2018-06-17 22:28] LABS: ALBUMIN 3.9 g/dl (3.4-5.0); ALK PHOS 78 U/L (45-117); ANION GAP 9 MMOL/L (8-16); BILIRUBIN,TOTAL 0.5 mg/dL (0.2-1); BLOOD UREA NITROGEN 21 mg/dL (7-18); CALCIUM 9.4 mg/dL (8.5-10.1); CHLORIDE 103 mmol/L (98-107); CO2 26 mmol/L (21-32); GLUCOSE,RANDOM 121 mg/dL (74-106); SGOT/AST 24 U/L (15-37); SGPT/ALT 37 U/L (13-61); SODIUM 138 mmol/L (136-145); TOT PROT 7.4 g/dl (6.4-8.2)
[2018-06-17] MEDS ORDERED: KETOROLAC TROMETHAMINE 15 MG/ML VIAL IVPUSH ONE (22:32)
--- NOTE | 2018-06-17 22:40 | PDOC ---
Attending Attestation - HPI HPI: 06/17/18 23:33 Patient is a 73 year old male with a significant past medical history of HTN, hypothyroidism, colitis, recurrent UTI, who presents to the ED with complaints of left sided testicular pain. Patient reports experiencing sudden testicular pain as well as associated symptoms of hematuria, and dysuria. He reports testicular pain is a dull, achy like pain that he states has slightly improved over time. Denies chest pain, Sob. Denies nausea, vomiting. Denies fevers, chills. Denies dysuria, hematuria. Denies constipation, diarrhea. Denies trauma to affected area, loss of consciousness. Denies contact with sick individuals, out of state travelling. Denies any other symptoms. Allergies: Penicillin. Social history: No smoking. No alcohol. No illicit drugs. Surgical: Appendectomy, Cholecystectomy, Left knee arthroscopy surgery. PMD: None - Physicial Exam PE: 06/17/18 23:33 GENERAL: Awake, alert, and fully oriented, in no acute distress HEAD: No signs of trauma EYES: PERRLA, EOMI, sclera anicteric, conjunctiva clear ENT: Auricles normal inspection, hearing grossly normal, nares patent, oropharynx clear without exudates. Moist mucosa NECK: Normal ROM, supple, no lymphadenopathy, JVD, or masses LUNGS: Breath sounds equal, clear to auscultation bilaterally. No wheezes, and no crackles HEART: Regular rate and rhythm, normal S1 and S2, no murmurs, rubs or gallops ABDOMEN: Soft, nontender, normoactive bowel sounds. No guarding, no rebound. No masses EXTREMITIES: Normal range of motion, no edema. No clubbing or cyanosis. No cords, erythema, or tenderness NEUROLOGICAL: Cranial nerves II through XII grossly intact. Normal speech, normal gait SKIN: Warm, Dry, normal turgor, no rashes or lesions noted <Lee Campos - Last Filed: 06/17/18 23:33> - Resident Resident Name: Tank Grant - ED Attending Attestation I have performed the following: I have examined & evaluated the patient, The case was reviewed & discussed with the resident, I agree w/resident's findings & plan, Exceptions are as noted - Medical Decision Making 06/17/18 22:40 I, Dr. Lula Cline, DO, attest that this document has been prepared under my direction and personally reviewed by me in its entirety. I further attest, that it accurately reflects all work, treatment, procedures and medical decision -making performed by me. 06/18/18 00:11 a/p: 73yo male with acute onset of testicular pain and hematuria -no flank pain -no dysuria -was sitting at a desk when the onset of pain started, no trauma -will send labs, ua, testicular ultrasound -pain improved 06/18/18 00:12 testicular ultrasound does not show torsion 06/18/18 00:12 hematuria, poss stone ct - shows stone in the L renal area, nothing obstructing, has renal artery aneurysm - will give vascular sx follow up for monitoring and will give urology follow up will treat UTI stable for dc to home <Lula Cline - Last Filed: 06/18/18 00:14>
[2018-06-17] MEDS ORDERED: KETOROLAC TROMETHAMINE 15 MG/ML VIAL ONE (23:16)
[2018-06-18] MEDS ORDERED: levoFLOXacin 750 MG TABLET PO ONE (00:13)
== END 2018-06-18 00:32 | disposition home or self-care (01) ==
LOC: JER 19:57
PROC: 3E0337Z Introduction of Electrolytic and Water Balance Substance into Peripheral Vein, Percutaneous Approach (ICD-10-PCS; principal; 2018-06-17)
PROC: 3E0333Z Introduction of Anti-inflammatory into Peripheral Vein, Percutaneous Approach (ICD-10-PCS; 2018-06-17)
DX: N50.812 Left testicular pain (principal); R31.9 Hematuria, unspecified; I72.2 Aneurysm of renal artery; N20.0 Calculus of kidney; I10 Essential (primary) hypertension; E03.9 Hypothyroidism, unspecified; Z87.440 Personal history of urinary (tract) infections
CPT/HCPCS: 36415; 74176; 76870-TC; 80053; 81003; 81015; 85025; 87086; 87186; 99282-25; J7030

== ENCOUNTER 2018-12-12 09:31 | Inpatient (IN) | payer OTHER ==
[2018-12-12 09:35] VITALS: BMI 28.8
--- NOTE | 2018-12-12 10:16 | PDOC ---
History of Present Illness - General Chief Complaint: Blood Pressure Problem Stated Complaint: HYPERTENSION Time Seen by Provider: 12/12/18 10:16 - History of Present Illness Initial Comments: 12/12/18 10:44 Mr. Bowden is a 73 yo male w/ pmh of HTN, hypothyroidism, colitis, and recurrent UTI who presents for evaluation of 1 week history of generalized weakness. Patient further reports he woke up this morning and checked his home BP and found it to be elevated to 195's systolic, prompting his visit. Patient otherwise denies other complaints. The patient denies chest pain, shortness of breath, headache and dizziness. Denies fever, chills, nausea, vomit, diarrhea and constipation. Denies dysuria, frequency, urgency and hematuria. Past History - Past Medical History Allergies/Adverse Reactions: Allergies Allergy/AdvReac Type Severity Reaction Status Date / Time Penicillins Allergy Intermediate Rash Verified 12/12/18 09:35 Home Medications: Ambulatory Orders Aspirin 81 mg PO DAILY 12/08/12 Multivitamin [Multivitamins] 1 each PO DAILY 12/08/12 Ranitidine [Zantac -] 150 mg PO BID 12/08/12 Tamsulosin HCl 0.4 mg PO HS 12/08/12 Atorvastatin Ca [Lipitor] 10 mg PO HS 01/21/18 Cholecalciferol (Vitamin D3) [Vitamin D3] 1,000 unit PO DAILY 01/21/18 Cyanocobalamin [Vitamin B12 -] 1,000 mcg PO DAILY 01/21/18 Docusate Sodium [Colace] 100 mg PO HS 01/21/18 Levothyroxine [Synthroid -] 125 mcg PO DAILY 01/21/18 Losartan/Hydrochlorothiazide [Losartan-Hctz 50-12.5 mg Tab] 1 each PO HS metroNIDAZOLE [Flagyl -] 500 mg PO DAILY #7 tablet 02/22/18 Anemia: No Asthma: No Cancer: Yes (prostate) Cardiac Disorders: No CVA: No COPD: No CHF: No Dementia: No Diabetes: No GI Disorders: Yes (GERD) Disorders: Yes (BPH) HTN: Yes Hypercholesterolemia: Yes Liver Disease: No Seizures: No Thyroid Disease: No - Surgical History Abdominal Surgery: Yes Appendectomy: Yes ("RUPTURED") Cardiac Surgery: No Cholecystectomy: Yes Lung Surgery: No Neurologic Surgery: No Orthopedic Surgery: Yes (KNEE ARTHROSCOPY, LEFT) - Immunization History Immunization Up to Date: Yes - Suicide/Smoking/Psychosocial Hx Smoking Status: Yes Smoking History: Never smoked Have you smoked in the past 12 months: No Number of Cigarettes Smoked Daily: 0 If you are a former smoker, when did you quit?: 1972 Hx Alcohol Use: No Drug/Substance Use Hx: No Substance Use Type: None Hx Substance Use Treatment: No Review of Systems - Review of Systems Comments:: 12/12/18 10:46 GENERAL/CONSTITUTIONAL: +Generalized weakness. No fever or chills. HEAD, EYES, EARS, NOSE AND THROAT: No change in vision. No ear pain or discharge. No sore throat. CARDIOVASCULAR: No chest pain or shortness of breath RESPIRATORY: No cough, wheezing, or hemoptysis. GASTROINTESTINAL: No nausea, vomiting, diarrhea or constipation. GENITOURINARY: No dysuria, frequency, or change in urination. MUSCULOSKELETAL: No joint or muscle swelling or pain. No neck or back pain. SKIN: No rash NEUROLOGIC: No headache, vertigo, loss of consciousness, or change in strength/ sensation. ENDOCRINE: No increased thirst. No abnormal weight change HEMATOLOGIC/LYMPHATIC: No anemia, easy bleeding, or history of blood clots. ALLERGIC/IMMUNOLOGIC: No hives or skin allergy. *Physical Exam - Vital Signs Last Vital Signs Temp Pulse Resp BP Pulse Ox 97.7 F 87 18 175/85 H 97 12/12/18 09:32 12/12/18 09:32 12/12/18 09:32 12/12/18 09:32 12/12/18 09:32 - Physical Exam Comments: 12/12/18 10:47 GENERAL: Awake, alert, and fully oriented, in no acute distress HEAD: No signs of trauma, normocephalic, atraumatic EYES: PERRLA, EOMI, sclera anicteric, conjunctiva clear ENT: Auricles normal inspection, hearing grossly normal, nares patent, oropharynx clear without exudates. Moist mucosa NECK: Normal ROM, supple, no lymphadenopathy, JVD, or masses LUNGS: No distress, speaks full sentences, clear to auscultation bilaterally HEART: Regular rate and rhythm, normal S1 and S2, no murmurs, rubs or gallops, peripheral pulses normal and equal bilaterally. ABDOMEN: Soft, nontender, normoactive bowel sounds. No guarding, no rebound. No masses EXTREMITIES: Normal inspection, Normal range of motion, no edema. No clubbing or cyanosis. NEUROLOGICAL: Cranial nerves II through XII grossly intact. Normal speech, normal gait, no focal sensorimotor deficits SKIN: Warm, Dry, normal turgor, no rashes or lesions noted. ED Treatment Course - LABORATORY CBC & Chemistry Diagram: 12/12/18 10:33 12/12/18 10:33 Medical Decision Making - Medical Decision Making 12/12/18 12:00 Mr. Bowden is a 73 yo male w/ pmh as described who presents for non-specific complaints of weakness. Of note, patient recently started treatment with anti- testosterone therapy for prostate cancer. Upon laboratory evaluation patient noted to have positive troponins and CK-MB concerning for recent cardiac event. Patient given ASA and cardiology paged for consult. 12/12/18 12:31 Patient will be admitted for further cardiology follow-up. Laboratory Results - last 24 hr 12/12/18 12/12/18 12/12/18 10:27 10:33 10:33 WBC 4.8 RBC 4.91 Hgb 14.1 Hct 41.2 MCV 84.1 MCH 28.8 MCHC 34.3 RDW 12.9 Plt Count 220 MPV 8.3 Absolute Neuts (auto) 3.0 Neutrophils % 63.3 D Lymphocytes % 28.0 D Monocytes % 7.4 Eosinophils % 0.8 Basophils % 0.5 Nucleated RBC % 0 Sodium 139 Potassium 4.1 Chloride 103 Carbon Dioxide 27 Anion Gap 10 BUN 24.0 H Creatinine 1.1 Est GFR (CKD-EPI)AfAm 77.32 Est GFR (CKD-EPI)NonAf 66.71 Random Glucose 143 H Lactic Acid 1.3 Calcium 9.4 Total Bilirubin 1.3 H AST 40 H ALT 49 Alkaline Phosphatase 67 Creatine Kinase 329 H Creatine Kinase Index 2.0 CK-MB (CK-2) 6.8 H Troponin I 0.29 H Total Protein 7.5 Albumin 4.0 *DC/Admit/Observation/Transfer Diagnosis at time of Disposition: NSTEMI (non-ST elevated myocardial infarction) - Discharge Dispostion Decision to Admit order: Yes - Referrals Referrals: Stewart Tong MD [Primary Care Provider] - - Patient Instructions - Post Discharge Activity
[2018-12-12 10:53] LABS: BASO % 0.5 % (0-2.0); EOS % 0.8 % (0-4.5); HEMATOCRIT 41.2 % (35.4-49); HEMOGLOBIN 14.1 GM/dL (11.7-16.9); MCH 28.8 pg (25.7-33.7); MCHC 34.3 g/dl (32.0-35.9); MEAN CELL VOLUME 84.1 fl (80-96); MEAN PLT VOLUME 8.3 fl (7.5-11.1); MONO % 7.4 % (3.8-10.2); NEUT % 63.3 % (42.8-82.8); RBC 4.91 M/mm3 (4.00-5.60); RDW 12.9 % (11.9-15.9); WHITE BLOOD COUNT 4.8 K/mm3 (4.0-10.0)
[2018-12-12 11:01] LABS: PLATELET COUNT 220 K/MM3 (134-434)
[2018-12-12 11:18] LABS: BILIRUBIN,TOTAL 1.3 mg/dL (0.2-1); CALCIUM 9.4 mg/dL (8.5-10.1); CREATININE 1.1 mg/dL (0.55-1.3); POTASSIUM 4.1 mmol/L (3.5-5.1); TOT PROT 7.5 g/dl (6.4-8.2)
--- NOTE | 2018-12-12 11:51 | EKG ---
Test Reason : Blood Pressure : / mmHG Vent. Rate : 085 BPM Atrial Rate : 085 BPM P-R Int : 200 ms QRS Dur : 090 ms QT Int : 378 ms P-R-T Axes : 032 004 -01 degrees QTc Int : 449 ms NORMAL SINUS RHYTHM NONSPECIFIC T WAVE ABNORMALITY ABNORMAL ECG WHEN COMPARED WITH ECG OF 22-FEB-2018 09:37, INVERTED T WAVES HAVE REPLACED NONSPECIFIC T WAVE ABNORMALITY IN ANTERIOR LEADS Confirmed by DIPESH STRAUSS, SERENA ([id number]) on 12/12/2018 11:51:35 AM Referred By: Confirmed By:SERENA LANDON MD
[2018-12-12] MEDS ORDERED: ASPIRIN 81 MG CHEWABLE TABLETS PO ONE (11:57)
[2018-12-12] MEDS ORDERED: ASPIRIN 81 MG CHEWABLE TABLETS ONE (12:00)
[2018-12-12 12:10] LABS: URINE APPEARANCE CLEAR; URINE BILIRUBIN NEGATIVE (NEGATIVE); URINE COLOR YELLOW; URINE GLUCOSE (UA) NEGATIVE (NEGATIVE); URINE KETONE NEGATIVE (NEGATIVE); URINE LEUK ESTERASE NEGATIVE (NEGATIVE); URINE NITRITE NEGATIVE (NEGATIVE); URINE PROTEIN NEGATIVE (NEGATIVE); URINE UROBILINOGEN 0.2 mg/dL (0.2-1.0)
--- NOTE | 2018-12-12 13:42 | PDOC ---
Documentation entered by Dilshad Elizabeth SCRIBE, acting as scribe for Lisette Jackson MD. Lisette Jackson MD: This documentation has been prepared by the Glenn ortiz Daniel, SCRIBE, under my direction and personally reviewed by me in its entirety. I confirm that the documentation accurately reflects all work, treatment, procedures, and medical decision making performed by me. Attending Attestation - Resident Resident Name: Kenan Foy - [facility] HPI: 12/12/18 13:32 The patient is a 73 year old male with a past medical history of HTN, hypothyroidism, colitis, and recurrent UTI here today for evaluation of generalized weakness. The patient reports that he has had 1 week of generalized weakness and noted having a systolic blood pressure of 195 this morning. Patient denies headache, lightheadedness. Denies fever, chills. Denies chest pain, shortness of breath. Denies nausea, vomiting, diarrhea, abdominal pain. Allergies: Penicillins PCP: Stewart Tong - Physicial Exam PE: 12/12/18 12:30 GENERAL: Awake, alert, and fully oriented, in no acute distress HEAD: No signs of trauma EYES: PERRLA, EOMI, sclera anicteric, conjunctiva clear ENT: Auricles normal inspection, hearing grossly normal, nares patent, oropharynx clear without exudates. Moist mucosa NECK: Normal ROM, supple, no lymphadenopathy, JVD, or masses LUNGS: Breath sounds equal, clear to auscultation bilaterally. No wheezes, and no crackles HEART: Regular rate and rhythm, normal S1 and S2, no murmurs, rubs or gallops ABDOMEN: Soft, nontender, normoactive bowel sounds. No guarding, no rebound. No masses EXTREMITIES: Normal range of motion, no edema. No clubbing or cyanosis. No cords, erythema, or tenderness NEUROLOGICAL: Cranial nerves II through XII grossly intact. Normal speech, normal gait SKIN: Warm, Dry, normal turgor, no rashes or lesions noted. - Medical Decision Making 12/12/18 13:40 Pt presents to the ED complaining of several days of generalized malaise and weakness. Labs show evidence of NSTEMI. EKG shows no ischemia. Will treat with ASA, admit to medicine for continued management.
[2018-12-12] MEDS ORDERED: SODIUM CHLORIDE 500 ML IV STA (13:48)
[2018-12-12] MEDS ORDERED: ASPIRIN 81 MG CHEWABLE TABLETS PO SCH (15:00)
--- NOTE | 2018-12-12 15:07 | HP ---
Admitting History and Physical - Admission Chief Complaint: weakness for few days History of Present Illness: The patient is a 73 year old male with a past medical history of HTN, hypothyroidism, colitis, and recurrent UTI here today for evaluation of generalized weakness. The patient reports that he has had 1 week of generalized weakness and noted having a systolic blood pressure of 195 this morning. He has not seen a cardio for some time over 10 year no distress. Patient denies headache, lightheadedness. Denies fever, chills. Denies chest pain, shortness of breath. Denies nausea, vomiting, diarrhea, abdominal pain. History Source: Patient - Past Medical History Renal/: Yes: BPH (prostate cancer) Endocrine: Yes: Hyperthyroidism - Advance Directives Advance Directives: No: Living Will, Health Care Proxy, DNR, Organ Donor, Tissue Donor, MOLST - Smoking History Smoking history: Never smoked Have you smoked in the past 12 months: No Aproximately how many cigarettes per day: 0 If you are a former smoker, when did you quit?: 1972 - Alcohol/Substance Use Hx Alcohol Use: No - Social History Usual Living Arrangement: Yes: With Spouse Home Medications - Allergies Allergies/Adverse Reactions: Allergies Allergy/AdvReac Type Severity Reaction Status Date / Time Penicillins Allergy Intermediate Rash Verified 12/12/18 09:35 - Home Medications Home Medications: Ambulatory Orders Aspirin 81 mg PO DAILY 12/08/12 Multivitamin [Multivitamins] 1 each PO DAILY 12/08/12 Ranitidine [Zantac -] 150 mg PO BID 12/08/12 Tamsulosin HCl 0.4 mg PO HS 12/08/12 Atorvastatin Ca [Lipitor] 10 mg PO HS 01/21/18 Cholecalciferol (Vitamin D3) [Vitamin D3] 1,000 unit PO DAILY 01/21/18 Cyanocobalamin [Vitamin B12 -] 1,000 mcg PO DAILY 01/21/18 Docusate Sodium [Colace] 100 mg PO HS 01/21/18 Levothyroxine [Synthroid -] 125 mcg PO DAILY 01/21/18 Losartan/Hydrochlorothiazide [Losartan-Hctz 50-12.5 mg Tab] 1 each PO HS metroNIDAZOLE [Flagyl -] 500 mg PO DAILY #7 tablet 02/22/18 Fluticasone Propionate [Flovent Diskus] 50 mcg IH DAILY 12/12/18 Loratadine [Claritin] 1 tab PO DAILY 12/12/18 Family Disease History - Family Disease History Family History: Denies Review of Systems - Review of Systems Constitutional: reports: Other (weakness) Eyes: reports: No Symptoms HENT: reports: No Symptoms Neck: reports: No Symptoms, Swollen Glands Cardiovascular: reports: No Symptoms Respiratory: reports: No Symptoms Gastrointestinal: reports: No Symptoms Genitourinary: reports: No Symptoms Musculoskeletal: reports: No Symptoms Integumentary: reports: No Symptoms Neurological: reports: No Symptoms Endocrine: reports: No Symptoms Hematology/Lymphatic: reports: No Symptoms Psychiatric: reports: No Symptoms Physical Examination Vital Signs: Vital Signs Temperature 97.7 F 12/12/18 09:32 Pulse Rate 70 12/12/18 12:24 Respiratory Rate 12/12/18 12:24 Blood Pressure 140/72 12/12/18 12:24 O2 Sat by Pulse Oximetry (%) 98 12/12/18 12:24 Constitutional: Yes: Well Nourished Eyes: Yes: Conjunctiva Clear HENT: Yes: Atraumatic Neck: Yes: Supple Cardiovascular: Yes: WNL, Regular Rate and Rhythm Respiratory: Yes: WNL, Regular, CTA Bilaterally Gastrointestinal: Yes: WNL, Normal Bowel Sounds Breast(s): Yes: WNL Musculoskeletal: Yes: WNL Extremities: Yes: WNL Labs: CBC, BMP 12/12/18 10:33 12/12/18 10:33 Imaging - Results X-ray: Report Reviewed Problem List - Problems (1) NSTEMI (non-ST elevated myocardial infarction) Assessment/Plan: called cardiac consult d/w cardio and pt is already been seen in er by him as I write the h/p he is pain free will start him on aspirin serial troponins Htn lostartan hypothyroidism start on levothryroxine high lipids start him of lipitor acitivity as tolerated Code(s): I21.4 - NON-ST ELEVATION (NSTEMI) MYOCARDIAL INFARCTION
--- NOTE | 2018-12-12 16:58 | CON.CARD ---
Consult Consult Specialty:: Cardiology Referred by:: Dr. Motley Reason for Consultation:: elevated troponin - History of Present Illness Chief Complaint: generalized weakness History of Present Illness: 73 year old man with a pmh HTN, hypothyroid, recurrent UTI, Prostate CA on hormonal treatment admitted with c/o 1 week h/o generalized weakness. pt seen and examined today in [facility]. states he plays tennis regularly and played several times this week including yesterday am. states it was very hot outside while playing and he thinks this is contributing to his symptoms. his weakness continued over the past week and this am his BP was elevated thus he was concerned and came to the ER. He denies having had any chest pain, sob, or palpitations. No pnd, orthopnea, or LE edema. No lightheadedness, dizziness, syncope or near syncope. Troponin level was incidentally noted to be milldly elevated. - History Source History Provided By: Patient, Medical Record Limitations to Obtaining History: No Limitations - Past Medical History Cardio/Vascular: Yes: HTN Renal/: Yes: BPH (prostate cancer), Cancer Endocrine: Yes: Hyperthyroidism - Alcohol/Substance Use Hx Alcohol Use: No - Smoking History Smoking history: Never smoked Have you smoked in the past 12 months: No Aproximately how many cigarettes per day: 0 If you are a former smoker, when did you quit?: 1971 - Social History ADL: Independent History of Recent Travel: No Home Medications - Allergies Allergies/Adverse Reactions: Allergies Allergy/AdvReac Type Severity Reaction Status Date / Time Penicillins Allergy Intermediate Rash Verified 12/12/18 09:35 - Home Medications Home Medications: Ambulatory Orders Aspirin 81 mg PO DAILY 12/08/12 Multivitamin [Multivitamins] 1 each PO DAILY 12/08/12 Ranitidine [Zantac -] 150 mg PO BID 12/08/12 Tamsulosin HCl 0.4 mg PO HS 12/08/12 Atorvastatin Ca [Lipitor] 10 mg PO HS 01/21/18 Cholecalciferol (Vitamin D3) [Vitamin D3] 1,000 unit PO DAILY 01/21/18 Cyanocobalamin [Vitamin B12 -] 1,000 mcg PO DAILY 01/21/18 Docusate Sodium [Colace] 100 mg PO HS 01/21/18 Levothyroxine [Synthroid -] 125 mcg PO DAILY 01/21/18 Losartan/Hydrochlorothiazide [Losartan-Hctz 50-12.5 mg Tab] 1 each PO HS metroNIDAZOLE [Flagyl -] 500 mg PO DAILY #7 tablet 02/22/18 Fluticasone Propionate [Flovent Diskus] 50 mcg IH DAILY 12/12/18 Loratadine [Claritin] 1 tab PO DAILY 12/12/18 Family Disease History - Family Disease History Family History: Denies Review of Systems - Review of Systems Constitutional: reports: Malaise, Weakness. denies: No Symptoms, Chills, Diaphoresis, Fever, Lethargy, Loss of Appetite, Night Sweats, Unintentional Wgt. Loss, Other Eyes: denies: No Symptoms, Blind Spots, Blurred Vision, Double Vision, Eye Pain , Floaters, Photophobia, Recent Change in Vision, Other HENT: denies: No Symptoms, Difficult Swallowing, Ear Discharge, Ear Pain, Epistaxis, Gingival Bleeding, Hearing Loss, Mouth Swelling, Nasal Congestion, Ocular Prosthesis, Throat Pain, Toothache, Ringing in Ears, Other Neck: denies: No Symptoms, Decreased ROM, Lumps, Pain on Movement, Stiffness, Swollen Glands, Tenderness, Other Cardiovascular: denies: No Symptoms, Chest Pain, Edema, Palpitations, Shortness of Breath, Other Respiratory: denies: No Symptoms, Cough, Exercise Intolerance, Hemoptysis, Orthopnea, PND, Snoring, SOB, SOB on Exertion, Wheezing, Other Gastrointestinal: denies: No Symptoms, Abdominal Pain, Bloating, Constipation, Diarrhea, Dysphagia, Indigestion, Melena, Nausea, Rectal Bleeding, Vomiting, Vomiting Blood, Other Genitourinary: denies: No Symptoms, Burning, Discharge, Dysuria, Flank Pain, Frequency, Hematuria, Incontinence, Lesions, Menses, Pain, Testicular Mass, Testicular Pain, Testicular Swelling, Urgency, Vaginal Bleeding, Other Breasts: denies: No Symptoms Reported, See HPI, Breast Implants, Discharge from Nipple, Lumps, Pain, Skin Changes, Other Musculoskeletal: denies: No Symptoms, Back Pain, Crepitus, Decreased ROM, Extremity Pain, Joint Pain, Joint Swelling, Muscle Pain, Muscle Cramps, Muscle Weakness, Other Integumentary: denies: No Symptoms, Blister, Bruising, Change in Color, Eczema, Erythema, Incision, Lesions, Lump, Pallor, Pruritis, Rash, Wound, Other Neurological: denies: No Symptoms, Change in LOC, Change in Speech, Confusion, Dizziness, Headache, Incoordination, Numbness, Parasthesia, Pre-Existing Deficit , Seizure, Syncope, Tremors, Unsteady Gait, Weakness, Other Endocrine: denies: No Symptoms, Excessive Sweating, Flushing, Increased Hunger, Increased Thirst, Intolerance to Cold, Intolerance to Heat, Unexplained Weight Gain, Unexplained Weight Loss, Other Hematology/Lymphatic: denies: No Symptoms, Easily Bruised, Excessive Bleeding, Swollen Glands, Other Psychiatric: denies: No Symptoms, Altered Sleep Pattern, Anxiety, Depression, Hallucinations, Panic, Paranoia, Suicidal, Other - Risk Factors Known Risk Factors: Yes: Hypertension Vital Signs: Vital Signs Temperature 97.7 F 12/12/18 09:32 Pulse Rate 70 12/12/18 12:24 Respiratory Rate 19 12/12/18 12:24 Blood Pressure 140/72 12/12/18 12:24 O2 Sat by Pulse Oximetry (%) 98 12/12/18 12:24 Constitutional: Yes: Well Nourished, No Distress, Calm Eyes: Yes: Conjunctiva Clear, EOM Intact, PERRL HENT: Yes: Atraumatic, Normocephalic Neck: Yes: Supple, Trachea Midline Respiratory: Yes: Regular, CTA Bilaterally. No: Rales, Rhonchi, Wheezes Gastrointestinal: No: Normal Bowel Sounds, Soft, Distention, Tenderness Cardiovascular: No: Regular Rate and Rhythm, Bradycardia, Tachycardia, Pulse Irregular, Gallop, Rub, Varicosities JVD: No Carotid Bruit: No PMI: Non-Displaced Heart Sounds: Yes: S1, S2. No: Split S2, S3, S4, Clicks, Gallop, Rub, Bruit Murmur: No: Systolic Murmur, Diastolic Murmur Musculoskeletal: Yes: WNL Extremities: Yes: WNL Edema: No Peripheral Pulses WNL: Yes Peripheral Pulses: 2+ Left Doralis Pedis, 2+ Right Dorsalis Pedis Integumentary: Yes: WNL Neurological: Yes: WNL, Alert, Oriented ...Motor Strength: WNL Psychiatric: Yes: WNL, Alert, Oriented - Other Data Labs, Other Data: CBC, BMP 12/12/18 10:33 12/12/18 10:33 Troponin, BNP 12/12/18 12/12/18 10:33 15:26 Troponin I 0.29 H 0.30 H Troponin, BNP 12/12/18 12/12/18 10:33 15:26 Troponin I 0.29 H 0.30 H nsr nsst Imaging - Results Chest X-ray: Report Reviewed, Image Reviewed EKG: Report Reviewed, Image Reviewed Other: Report Reviewed, Image Reviewed Assessment/Plan 73 year old man with a pmh HTN, hypothyroid, recurrent UTI, Prostate CA on hormonal treatment admitted with c/o 1 week h/o generalized weakness. pt seen and examined today in [facility]. states he plays tennis regularly and played several times this week including yesterday am. states it was very hot outside while playing and he thinks this is contributing to his symptoms. his weakness continued over the past week and this am his BP was elevated thus he was concerned and came to the ER. He denies having had any chest pain, sob, or palpitations. No pnd, orthopnea, or LE edema. No lightheadedness, dizziness, syncope or near syncope. Troponin level was incidentally noted to be milldly elevated. Troponin elevation-incidentally noted -no complaints of chest pain or sob only generalized weakness for 1 week -has been playing tennis in hot weather outside for the past week -likely component of intravascular depletion -ekg no ischemia -CK trended down and troponin did not significantly trend up -IVF hydration to be given in ER -repeat 3rd set of cardiac enzymes -not c/w ACS -cont ASA and statin -if pt remains inpatient can check echo tomorrow to evaluate LV systolic function. -can likely defer further ischemic evaluation ie repeat stress test to outpatient setting
[2018-12-12] MEDS ORDERED: DEXTROSE 5%-1/3 NS - 500 ML IV SCH (19:15)
[2018-12-12] MEDS ORDERED: TAMSULOSIN HCL 0.4 MG CAP ONE (21:45)
[2018-12-12] MEDS ORDERED: DOCUSATE SODIUM 100 MG CAPSULE (FP) PO ONE (21:45)
[2018-12-12] MEDS ORDERED: ATORVASTATIN CA 10 MG TABLET (FP) ONE (21:45)
[2018-12-12] MEDS ORDERED: LOSARTAN 50MG/HCTZ 12.5MG 1 TAB (FP) PO SCH (22:00)
[2018-12-12] MEDS ORDERED: ATORVASTATIN CA 10 MG TABLET (FP) PO SCH (22:00)
[2018-12-12] MEDS ORDERED: DOCUSATE SODIUM 100 MG CAPSULE (FP) PO SCH (22:00)
[2018-12-12] MEDS ORDERED: TAMSULOSIN HCL 0.4 MG CAP PO SCH (22:00)
[2018-12-13] MEDS ORDERED: LEVOTHYROXINE NA 125 MCG TABLET (FP) PO SCH (07:00)
[2018-12-13 07:44] LABS: BLOOD UREA NITROGEN 19.9 mg/dL (7-18); CALCIUM 9.2 mg/dL (8.5-10.1)
--- NOTE | 2018-12-13 08:14 | PN ---
Progress Note (short form) - Note Progress Note: came in for severe fatigue and high blood pressure, mildly elevated troponins after exercise. feels well now. episode of "shaking" at night-? atrial flutter, normal sinus rhythm Abnormal Lab Results 12/12/18 12/12/18 12/13/18 10:33 15:26 06:25 Anion Gap 4 L BUN 24.0 H 19.9 H Random Glucose 143 H 124 H Total Bilirubin 1.3 H AST 40 H Creatine Kinase 329 H CK-MB (CK-2) 6.8 H 5.0 H Troponin I 0.29 H 0.30 H Vital Signs Period Temp Pulse Resp BP Sys/Luque Pulse Ox Last 24 Hr 97.7 F-98.4 F 56-87 16-20 139-190/70-90 96-100 S1S2 RRR lungs cta abd soft NT +BS no edema aaox3 non focal 73 yo man with h/o recently diagnosed prostate ca 5.19 on hormone therapy at present, HTN, Hypothyroidism and self reported anxiety clinically is well ? aflutter at night HTN elevated troponin in light of exercise? cardiac strain? recheck third troponin for trending echo fr LV function cardiology f/up possible dc in afternoon
[2018-12-13] MEDS ORDERED: ASPIRIN 81 MG CHEWABLE TABLETS PO SCH (10:00)
[2018-12-13] MEDS ORDERED: LORATADINE 10 MG TABLET PO SCH (10:00)
--- NOTE | 2018-12-13 10:59 | ECHO ---
Name: CAROLPRISCILLA ED Exam:Adult Echocardiogram Study Date: 12/13/2018 10:23 AM Age: 73 yrs Reason For Study: LV Systolic Function Height: 68 in Weight: 190 lb BSA: 2.0 m2 MMode/2D Measurements & Calculations IVSd: 1.2 cm ACS: 2.2 cm LVIDd: 4.2 cm LVIDs: 3.0 cm LVPWd: 1.3 cm EDV(Teich): 77.1 ml LVOT diam: 2.0 cm ESV(Teich): 35.2 ml RV S John: 13.3 cm/sec Doppler Measurements & Calculations MV E max john: 63.5 cm/sec Ao V2 max: 119.9 cm/sec MV A max john: 72.2 cm/sec Ao max P.7 mmHg MV E/A: 0.88 SALAZAR(V,D): 2.3 cm2 LV V1 max P.2 mmHg MR max john: 369.6 cm/sec LV V1 mean P.0 mmHg MR max P.6 mmHg LV V1 max: 88.8 cm/sec LV V1 mean: 67.6 cm/sec LV V1 VTI: 21.2 cm SV(LVOT): 65.3 ml TR max john: 257.9 cm/sec TR max P.6 mmHg PI end-d john: 108.6 cm/sec Med Peak E' John: 5.9 cm/sec Med E/e': 10.7 Lat Peak E' John: 10.7 cm/sec Lat E/e': 5.9 Procedure A complete two-dimensional transthoracic echocardiogram was performed (2D, M-mode, Doppler and color flow Doppler). Left Ventricle The left ventricle is normal in size. There is mild concentric left ventricular hypertrophy. Left rikki tricular systolic function is normal. Ejection Fraction = 55-60%. No regional wall motion abnormalities noted. Right Ventricle The right ventricle is normal size. The right ventricular systolic function is normal. RV systolic TD I is 13 cm/s. Atria The left atrial size is normal. Right atrial size is normal. Mitral Valve The mitral valve is normal in structure and function. There is mild mitral regurgitation. Tricuspid Valve The tricuspid valve is normal in structure and function. There is mild tricuspid regurgitation. Pulmo nary artery systolic pressure is at least 30 mmHg assuming RA pressure of 3 mmHg. Aortic Valve There is mild aortic sclerosis.;. Mild aortic regurgitation. Pulmonic Valve The pulmonic valve is not well visualized. Great Vessels The aortic root is normal size. Pericardium/Pleura There is no pericardial effusion. Interpretation Summary The left ventricle is normal in size. There is mild concentric left ventricular hypertrophy. Left ventricular systolic function is normal. No regional wall motion abnormalities noted. Ejection Fraction = 55-60%. The right ventricular systolic function is normal. The left atrial size is normal. Right atrial size is normal. There is mild mitral regurgitation. There is mild tricuspid regurgitation. Pulmonary artery systolic pressure is at least 30 mmHg assuming RA pressure of 3 mmHg There is mild aortic sclerosis. Mild aortic regurgitation. There is no pericardial effusion. Anibal Jamison MD 12/13/2018 10:58 AM
--- NOTE | 2018-12-13 15:24 | PN ---
Progress Note, Physician Chief Complaint: No chest pain, palpitations, or sob Sinus on tele History of Present Illness: 73 year old man with a pmh HTN, hypothyroid, recurrent UTI, Prostate CA on hormonal treatment admitted with c/o 1 week h/o generalized weakness. pt seen and examined today in [facility]. states he plays tennis regularly and played several times this week including yesterday am. states it was very hot outside while playing and he thinks this is contributing to his symptoms. his weakness continued over the past week and this am his BP was elevated thus he was concerned and came to the ER. He denies having had any chest pain, sob, or palpitations. No pnd, orthopnea, or LE edema. No lightheadedness, dizziness, syncope or near syncope. Troponin level was incidentally noted to be milldly elevated. - Current Medication List Current Medications: Active Medications Aspirin (Asa -) 81 mg PO DAILY [facility] Last Admin: 12/13/18 12:08 Dose: 81 mg Atorvastatin Calcium (Lipitor -) 10 mg PO [facility] Last Admin: 12/12/18 21:45 Dose: 10 mg Docusate Sodium (Colace -) 100 mg PO [facility] Last Admin: 12/12/18 21:45 Dose: 100 mg HCTZ/Losartan Potassium (Hyzaar -) 1 tab PO [facility] Last Admin: 12/12/18 22:24 Dose: 1 tab Levothyroxine Sodium (Synthroid -) 125 mcg PO ACBK [facility] Last Admin: 12/13/18 06:12 Dose: 125 mcg Loratadine (Claritin -) 10 mg PO DAILY [facility] Last Admin: 12/13/18 12:09 Dose: 10 mg Tamsulosin HCl (Flomax -) 0.4 mg PO [facility] Last Admin: 12/12/18 21:45 Dose: 0.4 mg - Objective Vital Signs: Vital Signs Temperature 98.0 F 12/13/18 03:20 Pulse Rate 60 12/13/18 06:15 Respiratory Rate 16 12/13/18 06:15 Blood Pressure 139/70 12/13/18 06:15 O2 Sat by Pulse Oximetry (%) 98 12/13/18 06:15 Constitutional: Yes: No Distress Neck: Yes: Supple Cardiovascular: Yes: Regular Rate and Rhythm, S1, S2. No: JVD, Murmur Respiratory: Yes: CTA Bilaterally Gastrointestinal: Yes: Soft Edema: No Labs: CBC, BMP 12/12/18 10:33 12/13/18 06:25 Problem List - Problems (1) NSTEMI (non-ST elevated myocardial infarction) Code(s): I21.4 - NON-ST ELEVATION (NSTEMI) MYOCARDIAL INFARCTION Assessment/Plan 73 year old man with a pmh HTN, hypothyroid, recurrent UTI, Prostate CA on hormonal treatment admitted with c/o 1 week h/o generalized weakness. pt seen and examined today in [facility]. states he plays tennis regularly and played several times this week including yesterday am. states it was very hot outside while playing and he thinks this is contributing to his symptoms. his weakness continued over the past week and this am his BP was elevated thus he was concerned and came to the ER. He denies having had any chest pain, sob, or palpitations. No pnd, orthopnea, or LE edema. No lightheadedness, dizziness, syncope or near syncope. Troponin level was incidentally noted to be milldly elevated. Troponin elevation-incidentally noted -no complaints of chest pain or sob only generalized weakness for 1 week -has been playing tennis in hot weather outside for the past week -likely component of intravascular depletion -ekg no ischemia -CK trended down and troponin stable -IVF hydration to be given in ER -not c/w ACS -cont ASA and statin -Echocardiogram normal LVEF and no significant valve disease. Can have outpatient stress test for ischemic evaluation. F/u with Dr. Buenrostro
[2018-12-13 16:58] VITALS: BP 168/81; PULSE 62; TEMP 98.7
--- NOTE | 2018-12-14 10:44 | DS ---
Physical Examination Vital Signs: Vital Signs Temperature 98.7 F 12/13/18 16:57 Pulse Rate 62 12/13/18 16:57 Respiratory Rate 18 12/13/18 16:57 Blood Pressure 168/81 12/13/18 16:57 O2 Sat by Pulse Oximetry (%) 98 12/13/18 16:57 Eyes: Yes: Conjunctiva Clear Neck: Yes: Trachea Midline Gastrointestinal: Yes: Normal Bowel Sounds Labs: CBC, BMP 12/12/18 10:33 12/13/18 06:25 Discharge Summary Reason For Visit: WEAKNESS Hospital Course: 73 yo man with h/o recently diagnosed prostate ca 5.19 on hormone therapy at present, HTN, Hypothyroidism and self reported anxiety admitted for extreme weakness, high blood pressure. slightly elevated troponin, down trending now in light of exercise cardiac strain likely. echo reviewed, shows mild LVH, no wall motion abnormality, no significant valvular problem BP HR acceptable cardiology input appreciated medically stable to dc home with outpt follow up - Instructions Diet, Activity, Other Instructions: resume home medications, f/up with dr. Tong this week Disposition: HOME - Home Medications Comprehensive Discharge Medication List: Ambulatory Orders Aspirin 81 mg PO DAILY 12/08/12 Multivitamin [Multivitamins] 1 each PO DAILY 12/08/12 Ranitidine [Zantac -] 150 mg PO BID 12/08/12 Tamsulosin HCl 0.4 mg PO HS 12/08/12 Atorvastatin Ca [Lipitor] 10 mg PO HS 01/21/18 Cholecalciferol (Vitamin D3) [Vitamin D3] 1,000 unit PO DAILY 01/21/18 Cyanocobalamin [Vitamin B12 -] 1,000 mcg PO DAILY 01/21/18 Docusate Sodium [Colace] 100 mg PO HS 01/21/18 Levothyroxine [Synthroid -] 125 mcg PO DAILY 01/21/18 Losartan/Hydrochlorothiazide [Losartan-Hctz 50-12.5 mg Tab] 1 each PO HS Fluticasone Propionate [Flovent Diskus] 50 mcg IH DAILY 12/12/18 Loratadine [Claritin] 1 tab PO DAILY 12/12/18
== END 2018-12-13 16:50 | disposition home or self-care (01) | DRG 948 ==
LOC: JER 09:31 → JERBED 12:30
PROVIDERS: ADMIT Internal Medicine; ATTEND Internal Medicine
DX: R53.1 Weakness (principal); I10 Essential (primary) hypertension; E03.9 Hypothyroidism, unspecified; C61 Malignant neoplasm of prostate
CPT/HCPCS: 36415; 71045-TC-FY; 80048; 80053; 81003; 82550; 82553; 82962; 83605; 84484; 85025; 93005; 93010; 93306-TC; 99285-25; J7030

== ENCOUNTER 2018-12-15 08:50 | Emergency (ER) | payer OTHER ==
[2018-12-15 08:58] VITALS: BMI 28.1
[2018-12-15 10:11] LABS: BASO % 0.7 % (0-2.0); HEMATOCRIT 39.4 % (35.4-49); HEMOGLOBIN 13.6 GM/dL (11.7-16.9); LYMPH % 26.3 % (8-40); MCH 28.9 pg (25.7-33.7); MCHC 34.4 g/dl (32.0-35.9); MEAN PLT VOLUME 7.8 fl (7.5-11.1); MONO % 7.6 % (3.8-10.2); NEUT % 64.4 % (42.8-82.8); PLATELET COUNT 207 K/MM3 (134-434); RBC 4.69 M/mm3 (4.00-5.60); RDW 12.9 % (11.9-15.9); WHITE BLOOD COUNT 3.9 K/mm3 (4.0-10.0)
[2018-12-15 10:38] LABS: ALBUMIN 4.1 g/dl (3.4-5.0); BILIRUBIN,TOTAL 1.1 mg/dL (0.2-1); BLOOD UREA NITROGEN 22.3 mg/dL (7-18); CALCIUM 9.5 mg/dL (8.5-10.1); CREATININE 1.1 mg/dL (0.55-1.3); POTASSIUM 3.7 mmol/L (3.5-5.1); TOT PROT 7.4 g/dl (6.4-8.2)
--- NOTE | 2018-12-15 12:54 | PDOC ---
Documentation entered by Genny Johnson SCRIBE, acting as scribe for Julio Noonan MD. Julio Noonan MD: This documentation has been prepared by the Alex ortiz Adrianna, SCRIBE, under my direction and personally reviewed by me in its entirety. I confirm that the documentation accurately reflects all work, treatment, procedures, and medical decision making performed by me. History of Present Illness - General Chief Complaint: Weakness Stated Complaint: HYPERTENSION Time Seen by Provider: 12/15/18 09:18 - History of Present Illness Initial Comments: Patient is a 73 year old male, with a PMH of HTN, prostate CA (currently undergoing hormonal treatments), hypothyroidism, colitis, and recurrent UTI, presents for evaluation of hypertension and back tightness for a few hours. Patient reports feeling well yesterday, but has been tensed and stressed because of work, and feels anxious as if he is hyperventilating. After feeling anxious, he measured his BP and found it to be 190 (norm is 135/80). He reports associated tightness in his upper back, between his shoulders. His BP has decreased to 165 during evaluation, but he states he still feels tense. Denies chest pain, weakness in the extremities, blurry vision. He was seen in the ER 3 days ago for the same complaint, and his work-up did not have any significant findings. He is compliant with his daily medications, and has an appointment with his PCP tomorrow. Allergies: Penicillin. Social history: No smoking. No alcohol. No illicit drugs. Surgical: Appendectomy, Cholecystectomy, Left knee arthroscopy surgery. PMD: Dr. Stewart Bynum 12/15/18 10:29 Past History - Past Medical History Allergies/Adverse Reactions: Allergies Allergy/AdvReac Type Severity Reaction Status Date / Time Penicillins Allergy Intermediate Rash Verified 12/12/18 09:35 Home Medications: Ambulatory Orders Aspirin 81 mg PO DAILY 12/08/12 Multivitamin [Multivitamins] 1 each PO DAILY 12/08/12 Ranitidine [Zantac -] 150 mg PO BID 12/08/12 Tamsulosin HCl 0.4 mg PO HS 12/08/12 Atorvastatin Ca [Lipitor] 10 mg PO HS 01/21/18 Cholecalciferol (Vitamin D3) [Vitamin D3] 1,000 unit PO DAILY 01/21/18 Cyanocobalamin [Vitamin B12 -] 1,000 mcg PO DAILY 01/21/18 Docusate Sodium [Colace] 100 mg PO HS 01/21/18 Levothyroxine [Synthroid -] 125 mcg PO DAILY 01/21/18 Losartan/Hydrochlorothiazide [Losartan-Hctz 50-12.5 mg Tab] 1 each PO HS Fluticasone Propionate [Flovent Diskus] 50 mcg IH DAILY 12/12/18 Loratadine [Claritin] 1 tab PO DAILY 12/12/18 Anemia: No Asthma: No Cancer: Yes (prostate) Cardiac Disorders: No CVA: No COPD: No CHF: No Dementia: No Diabetes: No GI Disorders: Yes (GERD) Disorders: Yes (BPH) HTN: Yes Hypercholesterolemia: Yes Liver Disease: No Seizures: No Thyroid Disease: No - Surgical History Abdominal Surgery: Yes Appendectomy: Yes ("RUPTURED") Cardiac Surgery: No Cholecystectomy: Yes Lung Surgery: No Neurologic Surgery: No Orthopedic Surgery: Yes (KNEE ARTHROSCOPY, LEFT) - Immunization History Immunization Up to Date: Yes - Suicide/Smoking/Psychosocial Hx Smoking Status: Yes Smoking History: Never smoked Have you smoked in the past 12 months: No Number of Cigarettes Smoked Daily: 0 If you are a former smoker, when did you quit?: 1971 Information on smoking cessation initiated: No Hx Alcohol Use: No Drug/Substance Use Hx: No Substance Use Type: None Hx Substance Use Treatment: No Review of Systems - Review of Systems Comments:: CONSTITUTIONAL: +[place]. +Stressed. +Anxious as if he is hyperventilating. + Elevated BP. No fever, no chills, no fatigue EYES: No visual changes ENT: No ear pain, no sore throat CARDIOVASCULAR: No chest pain, no palpitations RESPIRATORY: No cough, no SOB GI: No abdominal pain, no nausea, no vomiting, no constipation, no diarrhea GENITOURINARY: No dysuria, no frequency, no hematuria MUSKULOSKELETAL: +Upper back tightness, between the shoulders. No joint pain, no myalgias SKIN: No rash NEURO: No headache 12/15/18 10:29 *Physical Exam - Vital Signs Last Vital Signs Temp Pulse Resp BP Pulse Ox 98.3 F 74 16 154/79 95 12/15/18 08:54 12/15/18 08:54 07/17/19 08:54 12/15/18 08:54 12/15/18 08:54 - Physical Exam Comments: CONSTITUTIONAL: Well-appearing; well-nourished; in no apparent distress HEAD: Normocephalic; atraumatic EYES: PERRL; EOM intact ENMT: External appears normal; normal oropharynx NECK: Supple; non-tender; no cervical lymphadenopathy CARD: Normal S1, S2; no murmurs, rubs, or gallops RESP: Normal chest excursion with respiration; breath sounds clear and equal bilaterally; no wheezes, rhonchi, or rales ABD: Soft, non-distended; non-tender; no palpable organomegaly, no palpable hernias EXT: Normal ROM in all four extremities; non-tender to palpation; distal pulses intact SKIN: Warm, dry, no rash NEURO: No focal neurological deficiencies. 12/15/18 10:36 ED Treatment Course - LABORATORY CBC & Chemistry Diagram: 12/15/18 10:00 12/15/18 10:00 - ADDITIONAL ORDERS Additional order review: Laboratory Results 12/15/18 12/15/18 10:00 10:00 Sodium 137 Potassium 3.7 Chloride 102 Carbon Dioxide 27 Anion Gap 8 BUN 22.3 H Creatinine 1.1 Est GFR (CKD-EPI)AfAm 77.32 Est GFR (CKD-EPI)NonAf 66.71 Random Glucose 130 H Calcium 9.5 Total Bilirubin 1.1 H AST 32 ALT 43 Alkaline Phosphatase 68 Creatine Kinase 242 Creatine Kinase Index 1.9 CK-MB (CK-2) 4.7 H Troponin I 0.34 H Total Protein 7.4 Albumin 4.1 12/15/18 10:00 RBC 4.69 MCV 84.0 MCHC 34.4 RDW 12.9 MPV 7.8 Neutrophils % 64.4 Lymphocytes % 26.3 Monocytes % 7.6 Eosinophils % 1.0 Basophils % 0.7 - RADIOLOGY Radiology Studies Ordered: Category Date Time Status CHEST X-RAY PORTABLE* [RAD] Stat Radiology 12/15/18 09:52 Completed Radiograph Interpretation: EXAM#: TYPE/EXAM: RESULT: [id number] RAD/CHEST X-RAY PORTABLE* : Chest pain Single AP view of the chest is submitted. Since the prior study of 12/12/2018, there is a normal mediastinum with well expanded lung lopez and questionable density in the left midlung field by the anterior aspect of left rib #4. This could be related to costal cartilage calcification. This is not seen on the prior study from 12/12/2018. Correlation and follow-up recommended. The remainder the study is unchanged. Reported By: Lennox Haddad MD 12/15/18 12:23 - Consult/PCP Case discussed with consulting physician: Magan Rivero (13:42pm- paged 13:47pm - spoke with Dr. Rivero) Medical Decision Making - Medical Decision Making 12/15/18 12:53 Patient is 73-year-old male with history of well-controlled hypertension who presents to the ER with an episode of elevated blood pressure, upper back tightness and stress. Patient denies chest pain or shortness of breath at any point during his presentation. Initial evaluation, patient is noted to be hypertensive, otherwise asymptomatic and resting comfortably. EKG shows no evidence of acute ischemia or right sided heart strain. Chest x-ray is within normal limit. Patient's troponin is noted to be in the indeterminate range ( review of previous records reveals indeterminate troponins which cardiology assumed were incidental and unrelated to the patient's presentation). CBC is within normal limit. cmp reveals nl lfts. Will obtain second set of cardiac enzymes and will discuss with cardiology prior to disposition. 12/15/18 14:55 Patient's repeat cardiac enzymes are noted to be in the indeterminate zone without changes. I discussed the case with Dr. Parker of cardiology. Patient's symptoms are not consistent with ACS. However, he is scheduled for an outpatient stress test as an outpatient. Repeat EKG also shows no evidence of acute ischemia or dynamic changes. Will discharge. *DC/Admit/Observation/Transfer Diagnosis at time of Disposition: Abnormal cardiac enzyme level Hypertension Qualifiers: Hypertension type: unspecified Qualified Code(s): I10 - Essential (primary) hypertension - Discharge Dispostion Disposition: HOME Condition at time of disposition: Stable - Referrals Referrals: Stewart Tong MD [Primary Care Provider] - Kurt Buenrostro MD [Staff Physician] - - Patient Instructions Printed Discharge Instructions: Essential Hypertension Additional Instructions: Please follow-up with your primary care physician as well as cardiology for further testing. Return immediately for shortness of breath and or chest pain. - Post Discharge Activity - Attestations Physician Attestion: 12/15/18 12:52 The documentation was prepared by the scribe under my direct supervision. I have reviewed the documentation which correctly represents the findings, medical decision-making and critical action taken by me.
[2018-12-15 15:14] VITALS: BP 159/85; PULSE 81; TEMP 98.1
--- NOTE | 2018-12-16 15:22 | EKG ---
Test Reason : Blood Pressure : / mmHG Vent. Rate : 081 BPM Atrial Rate : 081 BPM P-R Int : 204 ms QRS Dur : 090 ms QT Int : 396 ms P-R-T Axes : 033 029 021 degrees QTc Int : 460 ms SINUS RHYTHM WITH OCCASIONAL PREMATURE VENTRICULAR COMPLEXES OTHERWISE NORMAL ECG WHEN COMPARED WITH ECG OF 12-DEC-2018 10:14, PREMATURE VENTRICULAR COMPLEXES ARE NOW PRESENT NONSPECIFIC T WAVE ABNORMALITY, IMPROVED IN ANTERIOR LEADS Confirmed by DOROTA STRAUSS, KIMBERLEE ([id number]) on 12/16/2018 3:22:03 PM Referred By: Confirmed By:KIMBERLEE RAYA MD
--- NOTE | 2018-12-16 15:22 | EKG ---
Test Reason : Blood Pressure : / mmHG Vent. Rate : 064 BPM Atrial Rate : 064 BPM P-R Int : 228 ms QRS Dur : 090 ms QT Int : 422 ms P-R-T Axes : 043 -07 003 degrees QTc Int : 435 ms SINUS RHYTHM WITH 1ST DEGREE A-V BLOCK OTHERWISE NORMAL ECG WHEN COMPARED WITH ECG OF 12-DEC-2018 10:14, T WAVE INVERSION NO LONGER EVIDENT IN ANTERIOR LEADS Confirmed by DOROTA STRAUSS, KIMBERLEE ([id number]) on 12/16/2018 3:21:43 PM Referred By: Confirmed By:KIMBERLEE RAYA MD
== END 2018-12-15 15:14 | disposition home or self-care (01) ==
LOC: JER 08:50
DX: I10 Essential (primary) hypertension (principal); Z85.46 Personal history of malignant neoplasm of prostate; E03.9 Hypothyroidism, unspecified; Z87.440 Personal history of urinary (tract) infections; E78.00 Pure hypercholesterolemia, unspecified; K21.9 Gastro-esophageal reflux disease without esophagitis
CPT/HCPCS: 36415; 71045-TC-FY; 80053; 82550; 82553; 84484; 85025; 93005; 93010; 99285-25

== ENCOUNTER 2020-11-16 12:36 | Day surgery (SDC) | payer OTHER ==
[2020-11-15 13:23] VITALS: BMI 30.4
[2020-11-16 10:44] VITALS: TEMP 98
[2020-11-16 11:56] VITALS: PULSE 64
[2020-11-16 12:30] VITALS: BP 141/72
== END 2020-11-16 12:41 | disposition home or self-care (01) ==
LOC: JASU-ENDO 12:36
PROVIDERS: ATTEND Internal Medicine Gastroenterology
PROC: 0DBK8ZX Excision of Ascending Colon, Via Natural or Artificial Opening Endoscopic, Diagnostic (ICD-10-PCS; principal; 2020-11-16 11:00)
DX: Z12.11 Encounter for screening for malignant neoplasm of colon (principal); D12.2 Benign neoplasm of ascending colon; K57.30 Diverticulosis of large intestine without perforation or abscess without bleeding; K64.8 Other hemorrhoids
CPT/HCPCS: 88305-TC

== ENCOUNTER → 2020-12-20 | Day surgery (SDC) | payer OTHER | END | disposition home or self-care (01) | LOC: JRADIR 09:33 | PROVIDERS: ATTEND Internal Medicine Endocrinology, Diabetes & Metabolism | PROC: 0G9K3ZX Drainage of Thyroid Gland, Percutaneous Approach, Diagnostic (ICD-10-PCS; principal; 2020-12-20) | DX: E04.1 Nontoxic single thyroid nodule (principal) | CPT/HCPCS: 10005; 76942; 88173; 88305-TC ==